=== PATIENT | female | born 1955 | race Two or more races ===

== ENCOUNTER 2021-06-02 12:05 | Outpatient (REF) | payer OTHER, SELFPAY ==
--- NOTE | ~2021-06-02 | MM_ITS ---
EXAMINATION: MM SCREENING DIGITAL BREAST TOMOSYNTHESIS, BILATERAL CLINICAL INFORMATION: Screening. Asymptomatic. The lifetime risk of breast cancer based on the Tyrer-Cuzick Model is 4%. COMPARISON: Mammography: 08/28/2017, 08/25/2014 TECHNIQUE: Digital breast tomosynthesis is performed in both the craniocaudal and mediolateral oblique views along with computer-aided detection (CAD). Synthesized 2D images are generated from the tomosynthesis. FINDINGS: There are scattered areas of fibroglandular density (ACR BI-RADS breast composition Category b). There are no significant masses, abnormal calcifications, or other abnormalities. Parenchymal pattern is similar to prior exams. There is no interval mass or architectural abnormality or developing density. Again, there are multiple grouped round and rim calcifications, most are dermal. There are also some scattered vascular calcifications and dermal lesions overlying the breasts. There are no significant changes. MM/MM tomosynthesis screening BI IMPRESSION: No significant changes from prior studies. ASSESSMENT: BI-RADS 2: Benign RECOMMENDATION: Routine annual mammography screening. This patient's information was entered into a reminder system with a target due date for their next mammogram.
== END 2021-06-02 12:06 | disposition home or self-care (01) ==
LOC: HO.MAMMO 12:05
PROVIDERS: Visit Provider Family Medicine
DX: Z12.13 Encounter for screening for malignant neoplasm of small intestine (principal)
CPT/HCPCS: 77063; 77067

== ENCOUNTER 2022-07-07 14:14 | Outpatient (REF) | payer OTHER, SELFPAY ==
--- NOTE | ~2022-07-07 | MM_ITS ---
EXAMINATION: MM SCREENING DIGITAL BREAST TOMOSYNTHESIS, BILATERAL CLINICAL INFORMATION: Screening. Asymptomatic. The lifetime risk of breast cancer based on the Tyrer-Cuzick Model is 3.5%. COMPARISON: Mammography: 06/02/2021 and studies dating back to 09/19/2008. TECHNIQUE: Digital breast tomosynthesis is performed in both the craniocaudal and mediolateral oblique views along with computer-aided detection (CAD). Synthesized 2D images are generated from the tomosynthesis. FINDINGS: The breasts are heterogeneously dense, which may obscure small masses (ACR BI-RADS breast composition Category c). There is a stable parenchymal pattern of the right breast with no new abnormal dominant mass or suspicious grouping of microcalcifications. About the deep lateral aspect of the left breast on craniocaudal view there is a 4 x 3 mm circumscribed density without fatty cleft and lying approximately 8 cm from the nipple. I do not see a correlate on mediolateral oblique projection. Recommend further evaluation of the left breast density with rolled craniocaudal views and possible ultrasound. MM/MM tomosynthesis screening BI IMPRESSION: Left breast density for further evaluation. ASSESSMENT: BI-RADS 0: Incomplete - Need Additional Imaging Evaluation RECOMMENDATION: 1. Additional views of the left breast. 2. Targeted ultrasound if warranted after review of the additional views. 3. Radiology department staff will contact the patient for additional imaging. This patient's information was entered into a reminder system with a target due date for their next mammogram.
== END 2022-07-07 14:15 | disposition home or self-care (01) ==
LOC: HO.MAMMO 14:14
PROVIDERS: PCP Family Medicine; Visit Provider Family Medicine
DX: Z12.31 Encounter for screening mammogram for malignant neoplasm of breast (principal)
CPT/HCPCS: 77063; 77067

== ENCOUNTER 2022-07-13 14:23 | Outpatient (REF) | payer OTHER, SELFPAY ==
--- NOTE | ~2022-07-13 | MM_ITS ---
EXAMINATION: MM DIAGNOSTIC DIGITAL BREAST TOMOSYNTHESIS, LEFT US DIAGNOSTIC ULTRASOUND BREAST, LEFT CLINICAL INFORMATION: Recall from screening for circumscribed asymmetric nodular density under 5 mm on CC view. COMPARISON: Prior mammography 07/07/2022 and multiple prior exams dating back to 09/19/2008. TECHNIQUE: Digital breast tomosynthesis is performed. 2D images are generated from the tomosynthesis. The following views are obtained: Rolled CC medial x2, rolled CC lateral x2. Ultrasound left breast is targeted to the 2:00 through 5:00 position using grayscale imaging and color Doppler without and with harmonics. FINDINGS: There are scattered areas of fibroglandular density (ACR BI-RADS breast composition Category b). The rolled views demonstrate a smooth circumscribed oval nodule posterior outer breast at level of posterior nipple line 4:00 position and measuring approximately 4 x 3 mm. No visible fatty hilus. No associated calcification. Ultrasound demonstrates no simple cyst, architectural abnormality, or definite intramammary node. A transient 3 mm circumscribed hypoechoic focus was briefly visualized 4:00 and 6 cm from nipple, but unable to be reproducible to confirm a definite ultrasound correlate. Results are discussed with the patient and her daughter at time of visit. Option for short interval follow up discussed. The patient and family prefer tissue sampling which would require stereotactic targeting. The possibility of challenging targeting due to posterior location discussed. Results and recommendation called to spanish medical interpreter (Katie) for Dr. Boyd on 07/13/2022. MM/MM tomosynthesis added views L IMPRESSION: -4 mm smooth oval nodule along posterior nipple line posterior 4:00 position on mammography. -No definite reproducible ultrasound correlate. ASSESSMENT: BI-RADS 4: Suspicious (subcategory 4A: Low suspicion for malignancy) RECOMMENDATION: -Stereotactic sampling if able to be successfully targeted. This patient's information was entered into a reminder system with a target due date for their next mammogram.
== END 2022-07-13 14:24 | disposition home or self-care (01) ==
LOC: HO.MAMMO 14:23
PROVIDERS: PCP Family Medicine; Visit Provider Family Medicine
DX: R92.2 Inconclusive mammogram (principal)
CPT/HCPCS: 76642; 77061; 77065

== ENCOUNTER 2022-07-15 09:14 | Outpatient (REF) | payer OTHER, SELFPAY ==
--- NOTE | ~2022-07-15 | MM_ITS ---
EXAMINATION: STEREOTACTIC TOMOSYNTHESIS-GUIDED VACUUM-ASSISTED BREAST BIOPSY, LEFT SPECIMEN RADIOGRAPH, LEFT POST PROCEDURE DIGITAL MAMMOGRAM, LEFT CLINICAL INFORMATION: Left breast density deep 4:00 position. COMPARISON: July 13, 2022 and studies dating back to August 28, 2017. TECHNIQUE/PROCEDURE: Informed consent was obtained from the patient after discussion of the benefits, risks, and alternatives to biopsy today. Patient appeared to understand. Gave opportunity for questions. Patient signed consent form. BIOPSY TABLE: [employer] Affirm Prone Biopsy System. LESION: Circumscribed density. LOCAL ANESTHESIA: 10 mL 1% lidocaine; 20 mL 1% lidocaine with epinephrine. DERMATOTOMY: Single skin tiara dermatotomy performed. NEEDLE: [employer] Eviva 9-gauge vacuum assisted core biopsy device. APPROACH: medial lateral. TARGETING: Digital breast tomosynthesis used for targeting. CORES: 13. CLIP: [employer] SecurMark Cylinder-shaped marker. SPECIMEN RADIOGRAPH: Specimen radiograph is taken in separate room using digital mammography. No definite lesion is appreciated amongst tissue. POST PROCEDURE UNILATERAL DIGITAL MAMMOGRAM: The post biopsy mammogram is performed in separate room using separate digital mammography equipment from the biopsy procedure. 2 views are obtained. The breasts are heterogeneously dense, which may obscure small masses (breast composition category: c). The clip marker is in position. No gross hematoma. The patient tolerated the procedure well. No immediate complications. Home instructions reviewed with the patient. Final pathology results are pending. MM/MM stereotactic biopsy LT IMPRESSION: 1. Digital tomosynthesis-guided core biopsy left breast with clip placement. 2. Specimen radiograph taken and post procedure mammogram. There is satisfactory positioning of the biopsy clip. 3. Final pathology results pending. An addendum report will be issued.
[2022-07-15] MEDS: Lidocaine HCl 1 % 20 ML VIAL 9 ML SUBCUT (12:55)
[2022-07-15] MEDS: Sodium Bicarbonate 8.4% 50 MEQ/50 ML VIAL SUBCUT (12:56)
[2022-07-15] MEDS: Lidocaine HCl 1% PF/Epi 1:200,000 30 ML VIAL 20 ML SUBCUT (12:58)
== END 2022-07-15 09:15 | disposition home or self-care (01) ==
LOC: HO.MAMMO 09:14
PROVIDERS: PCP Family Medicine; Visit Provider Surgery
DX: R92.8 Other abnormal and inconclusive findings on diagnostic imaging of breast (principal)
CPT/HCPCS: 19081; 88305; A4648

== ENCOUNTER 2023-06-26 11:48 | Outpatient (REF) | payer OTHER, SELFPAY ==
--- NOTE | ~2023-06-26 | XR_ITS ---
EXAMINATION: XR FOOT, RIGHT CLINICAL INFORMATION: Right heel pain COMPARISON: None available. TECHNIQUE: AP, lateral, and oblique views of the right foot. FINDINGS: There is a prominent posterior calcaneal spur. Small plantar calcaneal spur. Bones joints and soft tissues otherwise unremarkable. XR/XR foot RT min 3V IMPRESSION: 1. Prominent posterior calcaneal spur. 2. Small plantar calcaneal spur.
== END 2023-06-26 11:49 | disposition home or self-care (01) ==
LOC: HO.HHCX 11:48
PROVIDERS: Visit Provider Family Medicine
DX: M79.671 Pain in right foot (principal)
CPT/HCPCS: 73630

== ENCOUNTER 2023-10-11 08:52 | Outpatient (AMB) | payer MEDICARE, SELFPAY ==
--- NOTE | 2023-10-11 09:44 | MHC.OFFVIS ---
Intake Vital Signs 10/11/23 09:46 Height 5 ft 3 in Weight 206 lb BMI 36.5 BP 180/100 H Intake Visit Reasons: New patient /Colpo consult Land Mobile Radio Technician Required: No Information Interpreted: non-clinical & clinical Brand Protection Manager: Brand Protection Manager Present (Vanna) Allergies morphine [MORPHINE] Allergy (Intermediate, Verified 10/11/23 09:48) ITCHING Is last menstrual period known: No Post menopausal: No HPI HPI Comments History of Present Illness Details Presenting referred for abnormal Pap smear done in 08/29 showing LGSIL HPV negative; in 2017 Pap was ascus/HPV negative [facility] Medical History Restless legs syndrome High cholesterol Depression with anxiety Hypothyroid HTN (hypertension), benign Surgical History Hx of tubal ligation Family History Father Diabetes Anemia, goat's milk Social History Alcohol intake: never Patient Tobacco Use Status: Never used Tobacco Female Reproductive History Menstrual Age of Menarche: 11 control method: permanent sterilization Total pregnancies: 5 Full term: 5 Number of Living Children: 4 Date of last pap smear: 08/26/22 (ASCUS) History of abnormal pap smear: Yes Review of Systems Const All systems reviewed & are unremarkable except as noted in HPI and below Reports as per HPI and Reports no additional complaints GI Reports no additional complaints Reports no additional complaints Physical Exam Vital Signs: Last Vital Signs BP 180/100 H 10/11/23 09:46 BMI result Body Mass Index 36.5 Assessment & Plan Assessment & Plan (1) LGSIL on Pap smear of cervix: Code(s): R87.612 - Low grade squamous intraepithelial lesion on cytologic smear of cervix (LGSIL) Plan: Discussed with the patient the result of her abnormal pap, its significance, risk of progression, persistence, and regression. the false positive/negative rate of a Pap smear as a screening test in detecting cervical cancer and the indication for a diagnostic test -colposcopy, biopsy, endocervical curettage. The patient verbalized understanding and agreed with the plan, all questions answered. Since the blood pressure is elevated in the patient did not occur antihypertensive today, instructions given the patient to reschedule colposcopy within a week. Coding Level of Care Code New Pt Level 3 (82819) Diagnoses LGSIL on Pap smear of cervix R87.612
[2023-10-11 09:46] VITALS: BP 180/100; BMI 36.5
== END 2023-10-11 10:12 | disposition left against medical advice (07) ==
LOC: HO.HWS 08:52
PROVIDERS: PCP Family Medicine; Visit Provider Obstetrics & Gynecology
DX: R87.612 Low grade squamous intraepithelial lesion on cytologic smear of cervix (LGSIL) (principal)
CPT/HCPCS: 99203

== ENCOUNTER → 2023-10-11 08:52 | Outpatient (BNVA) | payer MEDICARE, SELFPAY | PROVIDERS: PCP Family Medicine; Visit Provider Obstetrics & Gynecology | DX: R87.612 Low grade squamous intraepithelial lesion on cytologic smear of cervix (LGSIL) (principal) | CPT/HCPCS: 99202 ==

== ENCOUNTER 2023-10-18 09:25 | Outpatient (AMB) | payer MEDICARE, SELFPAY ==
--- NOTE | 2023-10-18 09:30 | MHC.OFFVIS ---
Intake Vital Signs 10/18/23 09:39 Height 5 ft 3 in Weight 205 lb 0.478 oz BMI 36.3 BP 140/80 H Intake Visit Reasons: Colposcopy Director Perioperative Required: Yes Director Perioperative Language: Hydrographical Technical Officer Name: Vanna HAWKINS Information Interpreted: non-clinical & clinical Program Management Professional: Program Management Professional Present (Vanna HAWKINS) Accompanied by: Self / Same As Patient Allergies morphine [MORPHINE] Allergy (Intermediate, Verified 10/18/23 09:40) ITCHING Post menopausal: Yes HPI HPI Comments History of Present Illness Details Presenting for colposcopy for LGSIL on Pap smear [facility] Medical History Restless legs syndrome High cholesterol Depression with anxiety Hypothyroid HTN (hypertension), benign Surgical History Hx of tubal ligation Family History Father Diabetes Anemia, goat's milk Social History Alcohol intake: never Patient Tobacco Use Status: Never used Tobacco Female Reproductive History Menstrual Age of Menarche: 11 Physical Exam Vital Signs: Last Vital Signs BP 140/80 H 10/18/23 09:39 BMI result Body Mass Index 36.3 Office Procedures Colposcopy Before the procedure was started discussed with the patient the procedure, alternatives & all the risks associated with the procedure (bleeding, infection, injury to vagina, bladder, vessels, possible need for transfusion with all its risks) then patient signed the consent Pap smear = LSIL Speculum inserted, acetic acid used Colposcopy done Transformation zone seen, acetowhite lesions identified at 6+9+11+12+1 o?clock, cervical biopsies taken from 6+9+11+12+ o?clock, ECC done afterwards. Vaginoscopy of the upper vagina showed no evidence of any aceto-white lesions Monsel solution used for hemostasis. The patient tolerated well . At the end the patient was instructed to call if temp>100.4, abdominal pain, n/v, bleeding; The patient was given the following instructions: nothing per vagina, no intercourse or bath tub use. All questions answered the patient verbalized understanding. Instructed the patient to make an appointment in 2 weeks for follow-up This note was generated with a voice recognition program. Some errors may have been overlooked during the review of this note. Sometimes these errors may affect the content or meaning of a given sentence. [id number] of cervix including upper vagina with biopsy and ECC Procedure code (CPT) selection complete Assessment & Plan Assessment & Plan (1) LGSIL on Pap smear of cervix: Code(s): R87.612 - Low grade squamous intraepithelial lesion on cytologic smear of cervix (LGSIL) Plan: Colposcopy done, see procedure note Orders: Orders AMB Colposcopy Today R87.612 - Low grade squamous intraepithelial lesion on cytologic smear of cervix (LGSIL) Coding Level of Care Code Procedure Only Diagnoses LGSIL on Pap smear of cervix R87.612 CPT Codes Colposcopy - CPT: 34111-Cdhnuhsvj of cervix including upper vagina with biopsy and ECC ([id number])
[2023-10-18 09:39] VITALS: BP 140/80; BMI 36.3
== END 2023-10-18 09:57 | disposition home or self-care (01) ==
LOC: HO.HWS 09:26
PROVIDERS: PCP Family Medicine; Visit Provider Obstetrics & Gynecology
DX: R87.612 Low grade squamous intraepithelial lesion on cytologic smear of cervix (LGSIL) (principal)
CPT/HCPCS: 57454

== ENCOUNTER 2023-10-18 09:25 | Outpatient (REF) | payer MEDICARE, SELFPAY | END 2023-10-18 09:26 | disposition home or self-care (01) | LOC: HO.LNP 09:25 | PROVIDERS: PCP Family Medicine; Visit Provider Obstetrics & Gynecology | DX: R87.612 Low grade squamous intraepithelial lesion on cytologic smear of cervix (LGSIL) (principal) | CPT/HCPCS: 57454; 88305 ==

== ENCOUNTER 2023-11-04 08:53 | Outpatient (REF) | payer MEDICARE, SELFPAY ==
--- NOTE | ~2023-11-04 | MM_ITS ---
EXAMINATION: MM SCREENING DIGITAL BREAST TOMOSYNTHESIS, BILATERAL CLINICAL INFORMATION: Screening. Asymptomatic. COMPARISON: Mammography: This study is compared with prior exams dating back to 2018. TECHNIQUE: Digital breast tomosynthesis is performed in both the craniocaudal and mediolateral oblique views along with computer-aided detection (CAD). Synthesized 2D images are generated from the tomosynthesis. FINDINGS: There are scattered areas of fibroglandular density (ACR BI-RADS breast composition Category b). There are no significant masses, abnormal calcifications, or other abnormalities. There is a biopsy tissue marker in the left breast. This indicates a site of prior benign percutaneous biopsy. Bilateral, benign calcifications are present in each breast. MM/MM tomosynthesis screening BI IMPRESSION: No mammographic evidence of malignancy. ASSESSMENT: BI-RADS BI-RADS 2 - Benign Findings RECOMMENDATION: Routine annual mammography screening. 1 year F/U This examination should not preclude the clinical evaluation of a suspicious palpable abnormality. This patient's information was entered into a reminder system with a target due date for their next mammogram.
== END 2023-11-04 08:54 | disposition home or self-care (01) ==
LOC: HO.MAMMO 08:53
PROVIDERS: PCP Family Medicine; Visit Provider Family Medicine
DX: Z12.31 Encounter for screening mammogram for malignant neoplasm of breast (principal)
CPT/HCPCS: 77063; 77067

== ENCOUNTER → 2023-11-04 09:15 | Outpatient (BNV) | payer MEDICARE, SELFPAY | PROVIDERS: PCP Family Medicine; Visit Provider Radiology Diagnostic Radiology | DX: Z12.31 Encounter for screening mammogram for malignant neoplasm of breast (principal) | CPT/HCPCS: 77063; 77067 ==

== ENCOUNTER 2024-02-16 12:13 | Outpatient (REF) | payer MEDICARE, SELFPAY ==
--- NOTE | ~2024-02-16 | XR_ITS ---
EXAMINATION: XR HIP, RIGHT CLINICAL INFORMATION: Pain for approximately 2 weeks. COMPARISON: None available. TECHNIQUE: Two views of the right hip. FINDINGS: No acute fracture or subluxation. Mild degenerative osteoarthritis. No significant soft tissue abnormality. XR/XR hip RT min 2V IMPRESSION: No acute fracture or malalignment. Mild degenerative osteoarthritis. If the patient has persistent pain or a diminished ability to bear weight on short-term follow-up, consider obtaining an MRI of the pelvis without contrast to exclude a radiographically occult fracture.
== END 2024-02-16 12:14 | disposition home or self-care (01) ==
LOC: HO.HHCX 12:13
PROVIDERS: Visit Provider Student in an Organized Health Care Education/Training Program
DX: M25.551 Pain in right hip (principal)
CPT/HCPCS: 73502

== ENCOUNTER 2024-02-21 09:31 | Outpatient (REF) | payer MEDICARE, SELFPAY ==
[2024-02-21 11:23] LABS: Hematocrit 45.7 % (37.0-47.0); Hemoglobin 14.5 g/dl (12.0-16.0); Mean Corpuscular HGB Conc 31.7 g/dl (31.0-35.0); Mean Corpuscular Hemoglobin 28.8 pg (27.0-33.0); Mean Corpuscular Volume 90.7 fL (80.0-98.0); Mean Platelet Volume 10.4 fL (9.4-12.3); Platelet Count 184 X10*3/uL (160-400); Red Blood Count 5.04 X10*6/uL (4.20-5.50); Red Cell Distribution Width 14.3 % (11.0-16.0); White Blood Count 4.4 X10*3/uL (4.8-10.8)
[2024-02-21 12:09] LABS: Alanine Aminotransferase 22 U/L (0-31); Albumin Level 4.3 g/dL (3.5-5.0); Alkaline Phosphatase 57 U/L (39-117); Anion Gap 13 (12-20); Aspartate Amino Transferase 22 U/L (5-31); Bilirubin Total 0.7 mg/dL (0.0-1.0); Blood Urea Nitrogen 20 mg/dL (9-16); Calcium 9.4 mg/dL (8.4-10.2); Carbon Dioxide 26 mmol/L (22-29); Chloride 105 mmol/L (96-108); Estimated Glomerular Filt Rate > 60; Glucose Random 81 mg/dL (60-115); Potassium 4.1 mmol/L (3.3-5.1); Sodium 140 mmol/L (135-145); Total Protein 7.4 g/dL (6.5-8.0)
[2024-02-21 12:12] LABS: Free T4 (Free Thyroxine) 0.98 ng/dL (0.71-1.85); Thyroid Stimulating Hormone 3.37 uIU/mL (0.32-4.0)
[2024-02-21 12:34] LABS: Estimated Average Glucose 100 mg/dL; Hemoglobin A1c % 5.1 % (<6.0)
[2024-02-23 13:28] LABS: HCV Log PCR <1.18 NOT DETECTED Log IU/mL (NOT DETECTED); HepC Viral Load <15 NOT DETECTED IU/mL (NOT DETECTED)
== END 2024-02-21 09:32 | disposition home or self-care (01) ==
LOC: HO.HHCL 09:31
PROVIDERS: Visit Provider Student in an Organized Health Care Education/Training Program
DX: R53.83 Other fatigue (principal); Z13.1 Encounter for screening for diabetes mellitus
CPT/HCPCS: 36415; 80053; 83036; 84439; 84443; 85027; 87522

== ENCOUNTER 2024-02-22 09:26 | Outpatient (AMB) | payer MEDICARE, SELFPAY ==
--- NOTE | 2024-02-22 12:54 | MHC.OFFVIS ---
Intake Visit Reasons: colpo results Allergies morphine [MORPHINE] Allergy (Intermediate, Verified 10/18/23 09:40) ITCHING HPI Comments Details: Presenting post colpo for follow-up. The patient is doing well with no complaints. The pathology showed the following: A. Endocervix, curettage: - Low grade squamous intraepithelial lesion (ADELINA 1). - Inflamed endocervical mucosa with reactive changes. B. Cervix, 1 o'clock, biopsy: Inflamed squamous epithelium with reactive changes; no endocervical epithelium present. C. Cervix, 6 o'clock, biopsy: Squamous mucosa within normal limits; no endocervical epithelium present. D. Cervix, 9 o'clock, biopsy: Squamous mucosa within normal limits; no endocervical epithelium present. E. Cervix, 11 o'clock, biopsy: Squamous mucosa within normal limits; no endocervical epithelium present. F. Cervix, 12 o'clock, biopsy: Mildly inflamed squamous mucosa and focal endocervical epithelium with reactive changes PFSH Medical History Restless legs syndrome High cholesterol Depression with anxiety Hypothyroid HTN (hypertension), benign Surgical History Hx of tubal ligation Family History Father Diabetes Anemia, goat's milk Social History Alcohol intake: never Patient Tobacco Use Status: Never used Tobacco Female Reproductive History Menstrual Age of Menarche: 11 Review of Systems Const All systems reviewed & are unremarkable except as noted in HPI and below Reports as per HPI and Reports no additional complaints GI Reports no additional complaints Reports no additional complaints Telehealth Telehealth Telehealth Platform: Telephone Location of provider rendering services: practice address Location of patient: address on file Patient Identification confirmed using: Name, : Yes Telehealth method: voice only Patient verbally consented to treatment: Yes Patient verbally consented to billing insurance company: Yes Patient informed of any privacy concerns related to visit: Yes Assessment & Plan Assessment & Plan (1) Dysplasia of cervix, low grade (ADELINA 1): Code(s): N87.0 - Mild cervical dysplasia Category: Medical Plan: Discussed with the patient the pathology results of the colposcopy biopsies & endocervical curettage ( mild dysplasia-ADELINA 1). Discussed with the patient the sensitivity specificity, positive and negative predictive value in detecting cervical cancer in addition discussed the regression, persistence and progression rates. Recommended co-testing in 12 months, if cytology and or HPV are abnormal will proceed was colposcopy biopsy and endocervical curettage, if lesions gets worse or stays persistent for 2 years will proceed with loop electric excision procedure. Instructions given to the patient to schedule a co test appointment in 1 year. All questions answered the patient verbalized understanding. I spent a total of 20 minutes reviewing the chart, talking to the patient via phone and documenting in the medical record. Coding Level of Care Code Tele Est Pt Level 1 (83650) Diagnoses Dysplasia of cervix, low grade (ADELINA 1) N87.0
== END 2024-02-22 14:57 | disposition home or self-care (01) ==
PROVIDERS: PCP Family Medicine; Visit Provider Obstetrics & Gynecology
DX: N87.0 Mild cervical dysplasia (principal)
CPT/HCPCS: 99211; 99442

== ENCOUNTER → 2024-02-22 09:26 | Outpatient (BNVA) | payer MEDICARE, SELFPAY | PROVIDERS: PCP Family Medicine; Visit Provider Obstetrics & Gynecology ==

== ENCOUNTER 2024-06-05 08:54 | Outpatient (REF) | payer MEDICARE, SELFPAY ==
[2024-06-05 11:44] LABS: Hemoglobin 14.5 g/dl (12.0-16.0); Mean Corpuscular HGB Conc 31.5 g/dl (31.0-35.0); Mean Corpuscular Hemoglobin 28.2 pg (27.0-33.0); Mean Corpuscular Volume 89.5 fL (80.0-98.0); Mean Platelet Volume 10.7 fL (9.4-12.3); Platelet Count 195 X10*3/uL (160-400); Red Blood Count 5.14 X10*6/uL (4.20-5.50); Red Cell Distribution Width 14.3 % (11.0-16.0); White Blood Count 5.8 X10*3/uL (4.8-10.8)
[2024-06-05 12:06] LABS: Creatinine Urine 124.61 mg/dL; Microalbum/Creatinine Ratio Ur 8.8 ug/mg cr (<30)
[2024-06-05 12:22] LABS: Estimated Average Glucose 105 mg/dL; Hemoglobin A1C 132.8683 umol/L; Hemoglobin A1c % 5.3 % (<6.0); Total Hemoglobin (HGBA1C) 3850.2775 umol/L
[2024-06-05 12:24] LABS: Alanine Aminotransferase 22 U/L (0-31); Albumin Level 4.1 g/dL (3.5-5.0); Alkaline Phosphatase 56 U/L (39-117); Anion Gap 10 (12-20); Aspartate Amino Transferase 22 U/L (5-31); Bilirubin Direct 0.1 mg/dL (0.0-0.5); Bilirubin Total 0.5 mg/dL (0.0-1.0); Blood Urea Nitrogen 21 mg/dL (9-16); Carbon Dioxide 26 mmol/L (22-29); Chloride 110 mmol/L (96-108); Cholesterol 215 mg/dL (<200); Estimated Glomerular Filt Rate > 60; Glucose Random 91 mg/dL (60-115); HDL Cholesterol 52 mg/dL (>40); LDL Cholesterol Calculated 138 mg/dL (<100); Potassium 4.2 mmol/L (3.3-5.1); Sodium 142 mmol/L (135-145); Total Protein 7.2 g/dL (6.5-8.0); Triglycerides 126 mg/dL (<150)
[2024-06-05 12:26] LABS: Free T4 (Free Thyroxine) 1.07 ng/dL (0.71-1.85); Thyroid Stimulating Hormone 4.66 uIU/mL (0.32-4.0); Vitamin D 25-OH Total 42.3 ng/mL (>30)
[2024-06-05 14:32] LABS: CT PCR NOT DETECTED (Not Detect.); NG PCR NOT DETECTED (Not Detect.)
[2024-06-06 08:37] LABS: HBS Num1 32.85 mIU/mL (0-7.99); HBc Num1 0.16 S/CO (0.00-0.79); HBsAGNum1 0.33 S/CO (0.00-0.99); HIV AB/AG Nonreactive (Nonreactive); HIV Num 1 0.04 S/CO (0.00-0.99); Hepatitis A Antibody IgG REACTIVE (Nonreactive); Hepatitis B Core Antibody Nonreactive (Nonreactive); Hepatitis B Surface Antigen Negative (Negative); ~HepC Num1 0.83 S/CO (0.00-0.79); ~Hepatitis B Surface Antibody REACTIVE (Nonreactive)
[2024-06-06 09:17] LABS: ~HepC Num2 0.82; ~HepC Num3 0.85; ~Hepatitis C Antibody GRAYZONE (Nonreactive)
[2024-06-07 07:44] LABS: RPR Rapid Plasma Reagin NON-REACTIVE (NON-REACTIVE)
[2024-06-07 14:43] LABS: HCV Log PCR <1.18 NOT DETECTED Log IU/mL (NOT DETECTED); HepC Viral Load <15 NOT DETECTED IU/mL (NOT DETECTED)
== END 2024-06-05 08:55 | disposition home or self-care (01) ==
LOC: HO.HHCL 08:54
PROVIDERS: Visit Provider Family Medicine
DX: I10 Essential (primary) hypertension (principal); Z13.1 Encounter for screening for diabetes mellitus
CPT/HCPCS: 36415; 80048; 80061; 80076; 82043; 82306; 82570; 83036; 84439; 84443; 85027; 86592; 86704; 86706; 86708; 86803; 87340; 87389; 87491; 87522; 87591

== ENCOUNTER 2024-10-23 08:50 | Outpatient (REF) | payer MEDICARE, SELFPAY ==
--- NOTE | ~2024-10-23 | MM_ITS ---
EXAMINATION: DXA BONE DENSITY AXIAL HISTORY: Estrogen deficiency TECHNIQUE: [employer] Dual energy absorptiometry (DEXA) of the lumbar spine, total left hip, and femoral neck was performed. COMPARISON: Comparison is made with the prior examination dated 11/15/2011. FINDINGS: The bone mineral density of the lumbar spine is 1.391 with a T-score of 1.8, and a Z-score of 2.7. This is indicative of normal bone mineral density. This represents a BMD change of 6.3% compared to the prior exam. This is statistically significant. The bone mineral density of the left total hip is 0.902 with a T-score of -0.8, and a Z-score of 0.0. This is indicative of normal bone mineral density. This represents a BMD change of -0.9% compared to the prior exam. This is not statistically significant. The bone mineral density of the left femoral neck is 0.838 with a T-score of -1.4, and a Z-score of -0.3. This is indicative of osteopenia. This represents a BMD change of -11.3% compared to the prior exam. FRACTURE RISK: The FRAX index suggests a ten year probability of major osteoporotic fracture of 5.1%, and of hip fracture 0.7%. MM/XR DEXA axial skeleton IMPRESSION: Based on bone mineral density, and according to World Health Organization (WHO) criteria, the diagnosis is consistent with osteopenia. All bone density values are in grams per centimeter squared (g/cm2). Statistically, 68% of repeat scans fall within 1 SD (+/- 0.010 g/cm2 for AP spine L1-L4) and 1 SD (+/- 0.012 g/cm2 for femur total) FRAX is a trademark of the [employer]'s [employer] Met[employer], a World Health Organization (WHO) Collaborating Center. Electronically signed by: Darren Hong MD 10/23/2024 10:01 AM EDT
--- OUTSIDE RECORDS SUMMARY | 2024-10-23 09:43 | XMS_ITS | Encounter Summary ---
Author Organization [employer] Address [address] [facility] [address] [place] [address] Care Team Providers Care Organic Preparation Technician Name Role Phone Rosa Elliott DO Primary Care Provider + [phone] Reason for Visit * Reason Comments Med Refill Encounter Details Date Type Department Care Team ([facility] st Contact Info) Description 06/03/2023 Refill [facility] [address] [place], [place] [id number] Rosa Elliott DO [address] [place] [address] Secondary hypertension Social History Tobacco Use Types Packs/Day Years Used Date Smoking Tobacco: Never Passive Smoke Exposure: Never Smokeless Tobacco: Never Alcohol Use Standard Drinks/Week Comments Never 0 (1 standard drink = 0.6 oz pur e alcohol) Depression Answer Date Recorded Patient Health Questionnaire-9 Score 5 01/18/2023 Housing Stability Answer Date Recorded What is your housing situation today? I have carina bahena 06/03/[address] you li ve. Do you have problems with any of the following? None of the above 06/03/2023 Food Insecurity Answer Date Recorded Within the past 12 months, y ou worried that your food would run out before you got money to buy more: Never True 06/03/2023 Within the past 12 months,th e food you bought just didn't last and you didn't have enough money to get more: Never True Transportation Answer Date Recorded In the past 12 months, has l ack of transportation kept you from medical appts, meetings, work or from getting things needed for daily living? No 06/03/2023 Utilities Answer Date Recorded In the past 12 months, has t he electric, gas, oil or water company threatened to shut off services in your home? No 06/03/2023 Depression Answer Date Recorded Patient Health Questionnaire-2 Score 0 01/18/2023 Comments Unknown Sex and Gender Information Value Date Recorded Sex Assigned at Female 06/06/2022 10:21 AM EDT Legal Sex Female 10:21 AM EDT Gender Identity Female 06/06/2022 10:21 AM EDT Sexual Orientation Straight 06/06/2022 10 :21 AM EDT documented as of this encounter Plan of Treatment Not on file documented as of this encounter Visit Diagnoses Diagnosis Secondary hypertension Other secondary hypertension, unspecified documented in this encounter Additional Health Concerns Assessment Noted Time PHQ-9 Depression Total Score: 5 01/19/20 23 10:30 AM EDT documented as of this encounter Care Teams Organic Preparation Technician Relationship Specialty Start Date End Date Rosa Elliott DO [address] [place] [address] PCP - General Family Medicine 02/21/14 documented as of this encounter
--- OUTSIDE RECORDS SUMMARY | 2024-10-23 09:43 | XMS_ITS | Encounter Summary ---
Author Organization [employer] [facility] Address [address] [place] [address] [address] [place] [address] Care Team Providers Care Freight Broker Agent Name Role Phone Rosa Elliott DO Primary Care Provider Encounter Details Date Type Department Care Team (Late st Contact Info) Description 07/26/2022 Abstract [facility] [address] [place] [address] Rosa Elliott DO [address] [place] [address] Social History Tobacco Use Types Packs/Day Years Used Date Smoking Tobacco: Never Assessed Comments Unknown Sex and Gender Information Value Date Recorded Sex Assigned at Female 06/06/2022 10:21 AM EDT Legal Sex Female 10:21 AM EDT Gender Identity Female 06/06/2022 10:21 AM EDT Sexual Orientation Straight 06/06/2022 10 :21 AM EDT documented as of this encounter Plan of Treatment Not on file documented as of this encounter Visit Diagnoses Not on filedocumented in this encounter Care Teams Freight Broker Agent Relationship Specialty Start Date End Date Rosa Elliott DO [address] [place], [place] [phone] PCP - General Family Medicine 02/21/14 documented as of this encounter
--- OUTSIDE RECORDS SUMMARY | 2024-10-23 09:43 | XMS_ITS | Encounter Summary ---
Author Organization [employer] [facility] Address [address] [place] [address] [address] [place] [address] Care Team Providers Care Airplane Mechanic Name Role Phone Rosa Elliott DO Primary Care Provider + [phone] Encounter Details Date Type Department Care Team (Late st Contact Info) Description 07/26/2022 Abstract [facility] [address] [place] [address] Provider, Jonathan, Social History Tobacco Use Types Packs/Day Years Used Date Smoking Tobacco: Never Assessed Comments Unknown Sex and Gender Information Value Date Recorded Sex Assigned at Female 06/06/2022 10:21 AM EDT Legal Sex Female 10:21 AM EDT Gender Identity Female 06/06/2022 10:21 AM EDT Sexual Orientation Straight 06/06/2022 10 :21 AM EDT documented as of this encounter Plan of Treatment Pending Results Name Type Priority Associated Diagnoses Date /Time External Breast Biopsy Imaging Routine 9:08 AM EST documented as of this encounter Procedures Procedure Name Priority Date/Time Associated Diagnosis Comments EXTERNAL BREAST BIOPSY Routine 07/15/2022 9:09 AM EST documented in this encounter Results * External Breast Biopsy (07/15/2022 9:09 AM EST) Anatomical Region Laterality Modality Breast N/A Mammography Narrative 07/15/2022 9:09 AM EST Stereotactic biopsy of left breast with benign results us Historical Provider MD MANZANARES BI PROCEDURES Final R esult documented in this encounter Visit Diagnoses Not on filedocumented in this encounter Care Teams Airplane Mechanic Relationship Specialty Start Date End Date Rosa Elliott DO [address] [place] [address] PCP - General Family Medicine 02/21/14 documented as of this encounter
--- OUTSIDE RECORDS SUMMARY | 2024-10-23 09:44 | XMS_ITS | Encounter Summary ---
Author Organization [employer] Address [address] [facility] [place] [address] Care Team Providers Care Marine Tower Operator Name Role Phone Rosa Elliott DO Primary Care Provider [phone] Reason for Visit * Reason Onset Date Comments Reschedule 06/27/2024 Encounter Details Date Type Department Care Team ([facility] st Contact Info) Description 06/27/2024 Telephone [facility] [address] [place], [place] [phone] Rosa Elliott DO [address] [place], [place] [phone] Reschedule Social History Tobacco Use Types Packs/Day Years Used Date Smoking Tobacco: Never Passive Smoke Exposure: Never Smokeless Tobacco: Never Alcohol Use Standard Drinks/Week Comments Never 0 (1 standard drink = 0.6 oz pur e alcohol) Depression Answer Date Recorded Patient Health Questionnaire-9 Score 3 02/21/2024 Patient Health Questionnaire-9 Score 3 02/21/2024 Last PHQ-9: Questionnaire Data Not on file 0 02/21/2024 Housing Stability Answer Date Recorded What is your housing situation today? I have carina bahena 05/30/[address] you li ve. Do you have problems with any of the following? None of the above 05/30/2024 Food Insecurity Answer Date Recorded Within the past 12 months, y ou worried that your food would run out before you got money to buy more: Never True 05/30/2024 Within the past 12 months,th e food you bought just didn't last and you didn't have enough money to get more: Never True Transportation Answer Date Recorded In the past 12 months, has l ack of transportation kept you from medical appts, meetings, work or from getting things needed for daily living? No 05/30/2024 Utilities Answer Date Recorded In the past 12 months, has t he electric, gas, oil or water company threatened to shut off services in your home? No 05/30/2024 Depression Answer Date Recorded Patient Health Questionnaire-2 Score 3 02/21/2024 Internet Access Answer Date Recorded Internet Access Q1 Yes 05/30/2024 Internet Access Q2 Not on file 05/30/2024 Comments Unknown Sex and Gender Information Value Date Recorded Sex Assigned at Female 06/06/2022 10:21 AM EDT Legal Sex Female 10:21 AM EDT Gender Identity Female 06/06/2022 10:21 AM EDT Sexual Orientation Straight 06/06/2022 10 :21 AM EDT documented as of this encounter Miscellaneous Notes * Telephone Encounter - Shimon Carlson - 06/27/2024 10:02 AM EST Tc from pt requesting to r/s appt for 06/28. Contact pt to r/s at [phone] documented in this encounter Plan of Treatment Not on file documented as of this encounter Visit Diagnoses Not on filedocumented in this encounter Additional Health Concerns Assessment Noted Time PHQ-9 Depression Total Score: 3 02/21/20 24 10:33 AM EDT documented as of this encounter Care Teams Marine Tower Operator Relationship Specialty Start Date End Date Rosa Elliott DO [address] [place] [id number] PCP - General Family Medicine 02/21/14 documented as of this encounter
--- OUTSIDE RECORDS SUMMARY | 2024-10-23 09:44 | XMS_ITS | Clinical Summary ---
Author Organization [facility] Address [id number] [place] [id number] Care Team Providers Care Lead Programmer Name Role Phone Aisha Anne MD Primary Care Provider [phone] Family History Medical History Relation Name Comments No Known Problems Aunt No Known Problems Brother No Known Problems Father No Known Problems Maternal Grandfather No Known Problems Maternal Grandmother No Known Problems Mother No Known Problems Other No Known Problems Paternal Grandfather No Known Problems Paternal Grandmother No Known Problems Sister No Known Problems Uncle Blindness Neg Hx Cataracts Neg Hx Glaucoma Neg Hx Macular degeneration Neg Hx Strabismus Neg Hx Relation Name Status Comments Aunt Brother Father Maternal Grandfather Maternal Grandmother Mother Other Paternal Grandfather Paternal Grandmother Sister Uncle Social History Tobacco Use Types Packs/Day Years Used Date Smoking Tobacco: Never Smokeless Tobacco: Never Comments Unknown Sex and Gender Information Value Date Recorded Sex Assigned at Not on file Legal Sex Female 4:32 PM EST Gender Identity Not on file Sexual Orientation Not on file Obstetrics History Plan of Treatment Health Maintenance Due Date Last Done Comments Breast Cancer Screening 1955 DTaP,Tdap,and Td Vaccines (1 - Tdap) 1974 Pneumococcal Vaccine: 50+ Ye ars (1 of 1 - PCV) 2005 Zoster Vaccines (1 of 2) 2005 COVID-19 Vaccine (2023-2 5 season) 2024 Influenza Vaccine (#1) 2024 RSV Immunization Patients 60 + Years Old (1 - 1-dose 75+ series) 2030 HIB Vaccines Aged Out No longer eligi ble based on patient's age to complete this topic HPV Vaccines Aged Out No longer eligi ble based on patient's age to complete this topic Hepatitis A Vaccines Aged Out No long er eligible based on patient's age to complete this topic Hepatitis B Vaccines Aged Out No long er eligible based on patient's age to complete this topic IPV Vaccines Aged Out No longer eligi ble based on patient's age to complete this topic MMR Vaccines Aged Out No longer eligi ble based on patient's age to complete this topic Meningococcal ACWY Vaccine Aged Out N o longer eligible based on patient's age to complete this topic Meningococcal B Vacine Aged Out No lo nger eligible based on patient's age to complete this topic RSV Immunization Patients Un joy 20 months Aged Out No longer eligible b ased on patient's age to complete this topic Varicella Vaccines Aged Out No longer eligible based on patient's age to complete this topic Care Teams Lead Programmer Relationship Specialty Start Date End Date Aisha Anne MD PCP - General Internal Medicine 11/04/20
--- OUTSIDE RECORDS SUMMARY | 2024-10-23 09:44 | XMS_ITS | Encounter Summary ---
Author Organization [facility] [facility] Address [address] [facility] [address] [place] [address] Care Team Providers Care Import Export Agent Name Role Phone Rosa Elliott DO Primary Care Provider [phone] Reason for Visit * Reason Comments Med Refill Encounter Details Date Type Department Care Team ([facility] st Contact Info) Description 03/17/2023 Refill [facility] [address] [place], [place] [phone] Rosa Elliott DO [address] [place] [address] Other insomnia Social History Tobacco Use Types Packs/Day Years Used Date Smoking Tobacco: Never Passive Smoke Exposure: Never Smokeless Tobacco: Never Alcohol Use Standard Drinks/Week Comments Never 0 (1 standard drink = 0.6 oz pur e alcohol) Depression Answer Date Recorded Patient Health Questionnaire-9 Score 5 01/18/2023 Depression Answer Date Recorded Patient Health Questionnaire-2 [...] as of this encounter Visit Diagnoses Diagnosis Other insomnia documented in this encounter Additional Health Concerns Assessment Noted Time PHQ-9 Depression Total Score: 5 01/19/20 23 10:30 AM EDT documented as of this encounter Care Teams Import Export Agent Relationship Specialty Start Date End Date Rosa Elliott DO [address] [place] [address] PCP - General Family Medicine 02/21/14 documented as of this encounter
--- OUTSIDE RECORDS SUMMARY | 2024-10-23 09:44 | XMS_ITS | Encounter Summary ---
Author Organization [employer] [facility] Address [address] [place] [address] 7t [place] [address] Care Team Providers Care Superintendent Storage Area Name Role Phone Rosa Elliott DO Primary Care Provider Reason for Referral * Imaging (Routine) - Authorized Specialty Diagnoses / Procedures Referred By Tyrone t Referred To Contact Radiology Diagnoses Postmenopausal Procedures BD DEXA Axial Rosa Elliott DO [address] [place] [address] Phone: tel: fax: [address] Phone: tel: fax: Referral ID Status Reason Start Date Expiration Date V isits Requested Visits Authorized [id number] Authorized 10/08/2024 10/08/2025 1 1 * Imaging (Routine) - Authorized Specialty Diagnoses / Procedures Referred By Contac t Referred To Contact Radiology Diagnoses Breast pain, left Procedures BI Mammogram Diagnostic Tomosynthesis Bilateral Rosa Elliott DO [address] [place] [address] Phone: tel: fax: [address] Phone: tel: fax: Referral ID Status Reason Start Date Expiration Date V isits Requested Visits Authorized [id number] Authorized 10/08/2024 10/08/2025 1 1 * Imaging (Routine) - Authorized Specialty Diagnoses / Procedures Referred By Tyrone hale Referred To Contact Radiology Diagnoses Breast pain, left Procedures BI US Breast Complete Left Rosa Elliott DO [address] [place] [address] Phone: tel: fax: [address] Phone: tel: fax: Referral ID Status Reason Start Date Expiration Date V isits Requested Visits Authorized [id number] Authorized 10/08/2024 10/08/2025 1 1 Encounter Details Date Type Department Care Team (Late st Contact Info) Description 10/08/2024 9:45 AM EST Office Visit [facility] MED[facility]INE [address] [place] [address] Rosa Elliott DO [address] [place] [address] Essential hypertension (Primary Dx); Other hyperlipidemia; Depressive disorder; Hypothyroidism, unspecified type; Chronic migraine; Paresthesia of both lower extremities; Breast pain, left; Healthcare maintenance; Right hip pain; Other insomnia; Postmenopausal Social History Tobacco Use Types Packs/Day Years [...] Access Q2 Not on file 05/30/2024 Comments No Sex and Gender Information Value Date Recorded Sex Assigned at Female 06/06/2022 10:21 AM EDT Legal Sex Female 10:21 AM EDT Gender Identity Female 06/06/2022 10:21 AM EDT Sexual Orientation Straight 06/06/2022 10 :21 AM EDT documented as of this encounter Last Filed Vital Signs Vital Sign Reading Time Taken Comments Blood Pressure 154/94 10/08/2024 2:45 PM EST Pulse 69 10/08/2024 9:54 AM EST Temperature 36.2 ??C (97.1 ??F) 10/08/2024 9:54 AM ES T Respiratory Rate 21 10/08/2024 9:54 AM EST Oxygen Saturation 99% 10/08/2024 9:54 AM EST Inhaled Oxygen Concentration - - Weight 101 kg (223 lb) 10/08/2024 9:54 AM EST Height 160 cm (5' 3 ) 10/08/2024 9:54 AM EST Body Mass Index 39.5 10/08/2024 9:54 AM EST documented in this encounter Plan of Treatment Scheduled Orders Name Type Priority Associated Diagnoses Orde r Schedule BI US Breast Complete Left Imaging Routine Breast pain, left Expected: 10/08/2024, Expires: 12/08/2025 BI Mammogram Diagnostic Tomosynthesis Bilateral Imaging Routine Breast pain, left Expected: 10/08/2024, Expires: 12/08/2025 BD DEXA Axial Imaging Routine Postmenopausal Expected: 10/08/2024, Expires: 10/08/2025 documented as of this encounter Visit Diagnoses Diagnosis Essential hypertension- Primary Unspecified essential hypertension Other hyperlipidemia Depressive disorder Depressive disorder, not elsewhere classified Hypothyroidism, unspecified type Chronic migraine Paresthesia of both lower extremities Breast pain, left Healthcare maintenance Right hip pain Pain in joint, pelvic region and thigh Other insomnia Postmenopausal Asymptomatic postmenopausal status (age-related) (natural) documented in this encounter Additional Health Concerns Assessment Noted Time PHQ-9 Depression Total Score: 3 02/21/20 24 10:33 AM EDT documented as of this encounter Care Teams Superintendent Storage Area Relationship Specialty Start Date End Date Rosa Elliott DO [address] [place] [address] PCP - General Family Medicine 02/21/14 documented as of this encounter
--- OUTSIDE RECORDS SUMMARY | 2024-10-23 09:44 | XMS_ITS | Clinical Summary ---
Author Organization [employer] Address [address] [place] [address] [address] [place] [address] Care Team Providers Care Fabrication Machine Operator Name Role Phone EarlRosa Primary Care Provider Allergies Active Allergy Reactions Criticality Noted Date Comments Morphine 07/09/2013 Other Reaction(s): Rash/Dermatitis Medications * This document contains information received from the source organization and may not represent a complete record from that organization. atorvastatin (Lipitor) 10 MG tablet Take 1 tablet (10 mg) by mouth in the morning. 90 tablet 3 06/26/20 23 Active FLUoxetine (PROzac) 10 MG tablet Take 1 tablet (10 mg) by mouth in the morning. 90 tablet 06/26/20 23 Active hydrOXYzine pamoate (Vistaril) 25 MG capsule Take 1 capsule (25 mg) by mouth every 6 (six) hours if needed for anxiety. 30 capsule 2 06/26/20 23 Active levothyroxine (Synthroid, Levoxyl) 75 MCG tablet Take 1 tablet (75 mcg) by mouth before breakfast. 90 tablet 3 06/26/20 23 Active SUMAtriptan (Imitrex) 25 MG tablet TAKE 1 TABLET BY MOUTH ONE TIME IF NEEDED FOR MIGRAINE 9 tablet 2 06/26/20 23 Active lidocaine (Lidoderm) 5 % patchIndication s:Right hip pain Apply 1 patch topically Once per day. Remove & discard patch within 12 hours or as directed by MD. 30 patch 1 02/16/20 24 Active loratadine (Claritin) 10 MG tablet Take 1 tablet (10 mg) by mouth Once per day. 30 tablet 3 04/26/20 24 Active fluticasone (Flonase) 50 MCG/ACT nasal spray Administer 2 sprays into each nostril Once per day. Shake gently. Before first use, prime pump. After use, clean tip and replace cap. 16 g 3 04/26/20 24 2024 Active lisinopril 10 MG tabletIndicatio ns:Secondary hypertension TAKE 1 TABLET BY MOUTH EVERY DAY 90 tablet 1 06/03/20 24 Active acetaminophen (Tylenol 8 Hour) 650 MG ER tablet Take 1 tablet (650 mg) by mouth every 8 (eight) hours. 60 tablet 3 10/09/19 25 Active Diclofenac Sodium 1 % gelIndications: Right hip pain Apply 1 Application topically if needed in the morning, at noon, in the evening, and at bedtime (pain). 150 g 3 10/09/19 25 Active naproxen (Naprosyn) 500 MG tablet Take 1 tablet (500 mg) by mouth with breakfast and with evening meal. 30 tablet 1 10/09/19 25 Active traZODone (Desyrel) 150 MG tabletIndicatio ns:Other insomnia TAKE 1 TABLET BY MOUTH AT BEDTIME 30 tablet 3 10/09/19 25 Active baclofen (Lioresal) 10 MG tablet Take 1 tablet (10 mg) by mouth if needed in the morning and at bedtime for muscle spasms. 60 tablet 3 10/09/19 25 2025 Active topiramate (Topamax) 50 MG tablet Take 1 tablet (50 mg) by mouth at bedtime. 90 tablet 1 10/09/19 25 2025 Active acetaminophen (Tylenol 8 Hour) 650 MG ER tablet Take 1 tablet (650 mg) by mouth every 8 (eight) hours. 40 tablet 1 06/26/20 23 2024 Discontinued(R eorder (will not trigger notification to Pharmacy)) topiramate (Topamax) 50 MG tablet Take 50 mg by mouth at bedtime. 90 tablet 1 06/26/20 23 2024 Discontinued(R eorder (will not trigger notification to Pharmacy)) Diclofenac Sodium 1 % gelIndications: Right hip pain Apply 1 Application topically if needed each day (right hip pain). 50 g 02/16/20 24 2024 Discontinued(R eorder (will not trigger notification to Pharmacy)) naproxen (Naprosyn) 500 MG tablet TAKE 1 TABLET(500 MG) BY MOUTH IN THE MORNING AND AT BEDTIME NEEDED FOR MILD PAIN 10 tablet 06/04/20 24 2024 Discontinued(R eorder (will not trigger notification to Pharmacy)) traZODone (Desyrel) 150 MG tabletIndicatio ns:Other insomnia TAKE 1 TABLET BY MOUTH AT BEDTIME 30 tablet 09/09/19 25 2024 Discontinued(R eorder (will not trigger notification to Pharmacy)) cephalexin (Keflex) 500 MG capsule Take 1 capsule (500 mg) by mouth 4 times daily for 7 days. 28 capsule 10/09/19 25 2024 Active Problems Problem Noted Date Diagnosed Date Right hip pain 02/16/2024 Assessment & Plan (02/16/2024 3:19 PM EDT): -Pain in her right hip, sometimes moves to her thigh ,denies erythema nor swelling ,no trauma hx,taking tylenol w mild effect. Possible from OA. Symptoms are less suggestive for bursitis at this time. -right XR hip referred today -if normal but pt if painremains for another week to call to refer to orthopedic -Warm compress -Lidoderm patch -diclonac cream -tylenol prn Chronic migraine 06/26/2023 Essential hypertension 11/07/2022 Assessment & Plan (02/16/2024 3:18 PM EDT): BP 144/86 -Possible reactive to pain -to bring readings at next apt w PCP Hyperlipidemia 11/07/2022 Hypothyroidism 11/07/2022 History of hepatitis C 11/07/2022 Chronic pain of left ankle 11/07/2022 Chronic constipation 01/08/2018 BMI 40.0-44.9, adult 09/28/2015 Restless leg syndrome 09/28/2015 Resolved Problems Problem Noted Date Diagnosed Date Resolved Date Fatigue 02/16/2024 04/26/2024 Assessment & Plan (02/16/2024 3:19 PM EDT): -Reports feeling fatigue for several weeks,denies any resp, CV, or GI symptoms, no melebas no BRPR ,states to be compliant w her meds, denies night sweats nor fever ,denies weight loss ,no LDN 01/2023 CBC,chem wnl , TSH 4.76 -will start w basic labs TSH/T4 ,chem,Cbc,hb1AC,hep C VL -order today -will call w result -will need to f w PCP Grief 11/07/2022 04/26/2024 Assessment & Plan (02/16/2024 3:18 PM EDT): -hx of depression/anxiety -BH to see pt today here in office w plan for outpt referral to therapy Encounters Date Type Department Care Team Description 10/08/2024 9:45 AM EST Office Visit [facility] [address] [place] [phone] Rosa Elliott DO Essential hypertension (Primary Dx); Other hyperlipidemia; Depressive disorder; Hypothyroidism, unspecified type; Chronic migraine; Paresthesia of both lower extremities; Breast pain, left; Healthcare maintenance; Right hip pain; Other insomnia; Postmenopausal 10/08/2024 Travel 09/10/2024 Refill [facility] [address] [place] [address] Rayna Ferrer MD Secondary hypertension 09/09/2024 Refill [facility] [address] [place] [phone] Rosa Elliott DO Other insomnia 08/12/2024 Telephone [facility] [address] [place] [address] Rosa Elliott DO 08/01/2024 Telephone [facility] [address] [place] [address] Adelaide Camara MA Recall 08/01/2024 Travel from Last 3 Months Immunizations Name Administration Dates Next Due DTaP 09/14/2010 Hep A, Adult 07/20/2011,08/31/2010 Hep B, adult 07/20/2011,10/26/2010,08/31/2010 Influenza High-dose Quadriva lent Preservative Free 06/26/2023,04/22/2022,04/30/2021 Influenza, Split (incl. val fied surface antigen) 05/20/2013,04/25/2012 Influenza, trivalent, adjuvanted 04/16/2024 Pfizer Covid-19 Vaccine 12+ 06/07/2024, 3 Pneumococcal Conjugate PCV 13 04/30/2021 Pneumococcal Conjugate PCV 20 06/26/2023 TD (adult), 2 Lf tetanus tox oid, preservative free, adsorbed 08/19/2012 Tdap 01/18/2023,09/14/2010 Zoster, Recombinant 08/03/2021,04/30/2021,2020 Zoster, live 03/01/2016 Family History Medical History Relation Name Comments Coronary artery disease Father Diabetes Father Gout Father Heart failure Other Son Diabetes Son Relation Name Status Comments Father Other Son Son Social History Tobacco Use Types Packs/Day Years Used Date Smoking Tobacco: Never Passive Smoke Exposure: Never Smokeless Tobacco: Never Tobacco Cessation:Counseling Given: Not Answered Alcohol Use Standard Drinks/Week Comments Never 0 [...] Orientation Straight 06/06/2022 10 :21 AM EDT Last Filed Vital Signs Vital Sign Reading [...] Mass Index 39.5 10/08/2024 9:54 AM EST Plan of Treatment Health Maintenance Due Date Last Done Comments CT Colonography 1955 Colonoscopy 1955 Colorectal Cancer Screening 1955 FIT DNA/Cologuard 1955 FIT 1955 FOBT 1955 Sigmoidoscopy 1955 Alcohol/Substance Use Screening 1967 RSV Patients and Patients Aged 60 years or older (1 - Risk 60-74 years 1-dose series) 2015 Mammogram 11/03/2024 11/04/2023, 12/0 02/2022, 07/13/2022, Additional history exists Depression Screening 02/20/2025 02/21/2024, 02/21/20 24 SDOH Screening 05/30/2025 05/30/2024 Tobacco Screening 10/08/2025 10/08/2024 Lipid Panel 06/05/2029 06/05/2024, 01/05, 02/24/2021, Additional history exists DTaP/Tdap/Td Vaccines (5 - Td or Tdap) 01/18/2033 01/18/2023, 08/19/2012, 09/14/2010, Additional history exists Hepatitis A Vaccines Completed 07/20/2011, 08/31/19 11 Hepatitis B Vaccines Completed 07/20/2011, 10/26/2010, 08/31/2010 Zoster Vaccines Completed 08/03/2021, 04/08, 02/22/2021, Additional history exists Pneumococcal Vaccine: 50+ Years Completed 06/26/2023, 04/30/2021 Influenza Vaccine Completed 04/16/2024, , 04/22/2022, Additional history exists COVID-19 Vaccine Completed 06/07/2024, , 04/22/2022, Additional history exists HIB Vaccines Aged Out No longer eligi ble based on patient's age to complete this topic HPV Vaccines Aged Out No longer eligi ble based on patient's age to complete this topic IPV Vaccines Aged Out No longer eligi ble based on patient's age to complete this topic Meningococcal Vaccine Aged Out No roscoe angelina eligible based on patient's age to complete this topic RSV under 20 months Aged Out No longe r eligible based on patient's age to complete this topic Rotavirus Vaccines Aged Out No longer eligible based on patient's age to complete this topic Procedures Procedure Name Priority Date/Time Associated Diagnosis Comments LIPID PANEL, STANDARD Routine 06/05/2024 8:52 AM EDT Essential hypertension BI MAMMOGRAM SCREENING TOMOSYNTHESIS BILATERAL Routine 11/04/2023 9:15 AM EDT from Last 3 Months or Most Recently Relevant to Health Maintenance Results * (ABNORMAL) Lipid Panel, Standard (06/05/2024 8:52 AM EDT) Triglycerides 126 <150 mg/dL [facility] Comment:Desirable Triglyceri de: less than 150 mg/dLBorderline High Triglyceride 150-199 mg/dLHigh Triglyceride: 200-499 mg/dLVery High Triglyceride: greater than or equal to 5OO mg/dL Cholesterol 215(H) <200 mg/dL [facility] Comment:Desirable Cholestero l: less than 200 mg/dLBorderline High Cholesterol: 200-239 mg/dLHigh Cholesterol: greater than 239 mg/dL LDL Cholesterol Calculated 138(H) <100 mg/dL [facility] Comment:Desirable LDL: less than 100 mg/dLNear Optimal/Above Optimal LDL: 110- 129 mg/dLBorderline High LDL: 130-159 mg/dLHigh LDL: 160-189 mg/dLVery High LDL: greater than or equal to 190 mg/dL HDL Cholesterol 52 >40 mg/dL [facility] Comment:Desirable HDL: great er than 40 mg/dL Note: This HDL assay may give artificially low results in patients with liver disease. Blood Venous blood specimen / Unknown 06/05/2024 8:52 AM EDT 06/05/2024 11:23 AM EDT Rosa Elliott DO LAB BLOOD ORDERABLES Final R esult [facility] [address] [place] [address] [phone] * BI Mammogram Screening Tomosynthesis Bilateral (11/04/2023 9:15 AM EDT) Anatomical Region Laterality Modality Breast Bilateral Mammography 11/04/2023 9:15 AM EDT Narrative 11/15/2023 12:00 AM EDT ? [facility] ? [address] ?[place] [address] ? Mammography Report ? Signed ? Patient: Litzy,Natalie M ?MR#: [id number] ?? 21 ? : 1955 ?Acct:[id number] ? Age/Sex: 68 / F ?ADM Date: 03/30/24 ? Loc: HO.MAMMO ? Attending Oc Elliott DO ? Ordering Physician: Rosa Elliott DO ?Results: 2B ?? enign Findings ? Date of Service: 11/04/23 ?Follow Up: 1 Year From Orig ?? inal Mammogram ? Procedure(s): MM tomosynthesis screening BI ?? Accession Number(s): [id number] ? cc: Rosa Elliott DO ? EXAMINATION: ?? MM SCREENING DIGITAL BREAST TOMOSYNTHESIS, BILATERAL ? CLINICAL INFORMATION: ? Screening. Asymptomatic. ? COMPARISON: ?? Mammography: This study is compared with prior exams dating back to ?? 2017. ? TECHNIQUE: ?? Digital breast tomosynthesis is performed in both the craniocaudal and ?? mediolateral oblique views along with computer-aided detection (CAD). ?? Synthesized 2D images are generated from the tomosynthesis. ? FINDINGS: ?? There are scattered areas of fibroglandular density (ACR BI-RADS breast ?? composition Category b). ? There are no significant masses, abnormal calcifications, or other ?? abnormalities. ?? There is a biopsy tissue marker in the left breast. This indicates a ?? site of prior benign percutaneous biopsy. ? Bilateral, benign calcifications are present in each breast. ? MM/MM tomosynthesis screening BI ?? IMPRESSION: ?? No mammographic evidence of malignancy. ? ASSESSMENT: ? BI-RADS BI-RADS 2 - Benign Findings ? RECOMMENDATION: ?? Routine annual mammography screening. ? 1 year F/U ? This examination should not preclude the clinical evaluation of a ?? suspicious palpable abnormality. ? This patient's information was entered into a reminder system with a ?? target due date for their next mammogram. ? Dictated By: ?Vika Mendoza MD ? Signed By: ?<Electronically signed by Vika Mendoza MD in OV> ? 11/14/236 ? DD/ 4 ? TD/TT: ? Rope Tow Operator: ? Procedure Note Donotuseinterpreter, Image - 11/15/2023 [facility] [address] [place], [place] [address] Mammography Report Signed Patient: Natalie Mcghee MMR#: [id number] 21 : 5Acct:[id number] Age/Sex: 68 / FADM Date: 11/04/23 Loc: HO.MAMMO Attending Dr: Rosa Elliott DO Ordering Physician: Rosa Elliottults: 2B enign Findings Date of Service: 11/04/23Follow Up: 1 Year From Orig inal Mammogram Procedure(s): MM tomosynthesis screening BI Accession Number(s): [id number] cc: Rosa Elliott DO EXAMINATION: MM SCREENING DIGITAL BREAST TOMOSYNTHESIS, BILATERAL CLINICAL INFORMATION: Screening. Asymptomatic. COMPARISON: Mammography: This study is compared with prior exams dating back to 2018. TECHNIQUE: Digital breast tomosynthesis is performed in both the craniocaudal and mediolateral oblique views along with computer-aided detection (CAD). Synthesized 2D images are generated from the tomosynthesis. FINDINGS: There are scattered areas of fibroglandular density (ACR BI-RADS breast composition Category b). There are no significant masses, abnormal calcifications, or other abnormalities. There is a biopsy tissue marker in the left breast. This indicates a site of prior benign percutaneous biopsy. Bilateral, benign calcifications are present in each breast. MM/MM tomosynthesis screening BI IMPRESSION: No mammographic evidence of malignancy. ASSESSMENT: BI-RADS BI-RADS 2 - Benign Findings RECOMMENDATION: Routine annual mammography screening. 1 year F/U This examination should not preclude the clinical evaluation of a suspicious palpable abnormality. This patient's information was entered into a reminder system with a target due date for their next mammogram. Dictated By: Vika Mendoza MD Signed By: <Electronically signed by Vika Mendoza MD in OV> 11/14/23 2356 DD/ 0915 TD/TT: Rope Tow Operator: Rosa Elliott DO IMG BI PROCEDURES Final Resu lt from Last 3 Months or Most Recently Relevant to Health Maintenance Insurance [facility] MEDICARE ADVANTAGE HMO Care Teams Fabrication Machine Operator Relationship Specialty Start Date End Date Rosa Elliott DO [address] [place] [phone] PCP - General Family Medicine 02/21/14
--- OUTSIDE RECORDS SUMMARY | 2024-10-23 09:44 | XMS_ITS | Encounter Summary ---
Author Organization [employer] Address [address] [facility] [address] [place] [address] Care Team Providers Care Die Press Operator Name Role Phone MarkosRosa kessler Primary Care Provider Encounter Details Date Type Department Care Team (Latest Contact Info) Description 10/08/2024 Travel Social History Tobacco Use Types Packs/Day Years [...] documented as of this encounter Care Teams Die Press Operator Relationship Specialty Start Date End Date Rosa Elliott DO [address] [place] [address] PCP - General Family Medicine 02/21/14 documented as of this encounter
--- OUTSIDE RECORDS SUMMARY | 2024-10-23 09:44 | XMS_ITS | Encounter Summary ---
Author Organization [employer] Address [address] [facility] [address] [place] [address] Care Team Providers Care Leather Belt Loop Cutter Name Role Phone EarlRosa Primary Care Provider [phone] Reason for Visit * Reason Comments Med Refill Encounter Details Date Type Department Care Team ([facility] st Contact Info) Description 09/10/2024 Refill [facility] [address] [place], [place] [phone] Rayna Ferrer MD [address] [place] [address] Secondary hypertension Social History Tobacco Use Types [...] documented as of this encounter Care Teams Leather Belt Loop Cutter Relationship Specialty Start Date End Date Rosa Elliott DO [address] [place] [phone] PCP - General Family Medicine 02/21/14 documented as of this encounter
== END 2024-10-23 08:51 | disposition home or self-care (01) ==
LOC: HO.MAMMO 08:50
PROVIDERS: PCP Family Medicine; Visit Provider Family Medicine
DX: Z13.820 Encounter for screening for osteoporosis (principal); Z78.0 Asymptomatic menopausal state
CPT/HCPCS: 77080

== ENCOUNTER → 2024-10-23 09:15 | Outpatient (BNV) | payer MEDICARE, SELFPAY | PROVIDERS: PCP Family Medicine; Visit Provider Radiology Diagnostic Radiology | DX: E28.39 Other primary ovarian failure (principal) | CPT/HCPCS: 77080 ==

== ENCOUNTER → 2024-11-08 09:30 | Outpatient (BNV) | payer MEDICARE, SELFPAY | PROVIDERS: PCP Family Medicine; Visit Provider Internal Medicine | DX: N63.21 Unspecified lump in the left breast, upper outer quadrant (principal) | CPT/HCPCS: 76642; 77066; G0279 ==

== ENCOUNTER 2024-11-08 09:38 | Outpatient (REF) | payer MEDICARE, SELFPAY ==
--- NOTE | ~2024-11-08 | US_ITS ---
EXAMINATION: MM DIAGNOSTIC DIGITAL BREAST TOMOSYNTHESIS, BILATERAL Limited left breast ultrasound. CLINICAL INFORMATION: Left breast palpable lump. COMPARISON: Mammography: Comparison is made with relevant prior exams. TECHNIQUE: Digital breast mammography with tomosynthesis is performed in both the craniocaudal and mediolateral oblique views along with computer-aided detection (CAD). FINDINGS: The breasts are heterogeneously dense, which may obscure small masses (ACR BI-RADS breast composition Category c). BB marker in the upper outer breast without underlying abnormality. There are no significant masses, abnormal calcifications, or other abnormalities. Targeted color Doppler ultrasound demonstrates a simple to minimally complicated cyst at 1:00 7 cm from the nipple measuring approximately 4 x 3 x 3 mm which correlates with the patient's palpable lump and is benign. Results are provided to the patient at time of visit by the technologist. US/US breast LT limited mamm only IMPRESSION: Left: Benign simple to minimally complicated cyst in the area the patient's left palpable lump. Recommend clinical evaluation follow-up. Right: Negative. ASSESSMENT: BI-RADS BI-RADS 2 - Benign Findings RECOMMENDATION: 1 year F/U This patient's information was entered into a reminder system with a target due date for their next mammogram. Electronically signed by: Marquita Reyes DO 11/08/2024 12:31 PM EDT
--- OUTSIDE RECORDS SUMMARY | 2024-11-08 10:39 | XMS_ITS | Encounter Summary ---
Author Organization [employer] [facility] Address [address] [place] [address] [address] [place] [address] Care Team Providers Care Emergency Manager Name Role Phone Rosa Elliott DO Primary Care Provider [phone] Encounter Details Date Type Department Care Team (Late st Contact Info) Description 07/26/2022 Abstract [facility] [address] [place] [address] Rosa Elliott DO [address] [place] [address] Social History Tobacco Use Types Packs/Day Years [...] on filedocumented in this encounter Care Teams Emergency Manager Relationship Specialty Start Date End Date Rosa Elliott DO [address] [place], [place] [phone] PCP - General Family Medicine 02/21/14 documented as of this encounter
--- OUTSIDE RECORDS SUMMARY | 2024-11-08 10:40 | XMS_ITS | Clinical Summary ---
Author Organization [facility] Address [address] [place] [address] Phone Care Team Providers Care Insect Control Aide Name Role Phone Physician, Pcp Unknown Primary Care Provider Mariela vailable Allergies Active Allergy Reactions Criticality Noted Date Comments Morphine Rash 11/02/2024 Encounters Date Type Department Care Team Description 11/02/2024 2:31 PM EDT - 11/02/2024 9:39 PM EDT Emergency [facility] Emergency [address] [place] [address] Claudy Escobar MD Nonintractable headache, unspecified chronicity pattern, unspecified headache type (Primary Dx) Discharge Disposition: Home or Self Care from Last 3 Months Family History Medical History Relation Name Comments [...] Value Date Recorded Sex Assigned at Female 11/02/2024 4:59 PM EDT Legal Sex Female 4:32 PM EST Gender Identity Female 11/02/2024 4:59 PM EDT Sexual Orientation Straight 11/02/2024 4: 59 PM EDT Obstetrics History Last Filed Vital Signs Vital Sign Reading Time Taken Comments Blood Pressure 142/87 11/02/2024 9:35 PM EDT Pulse 87 11/02/2024 9:35 PM EDT Temperature 37.4 ??C (99.3 ??F) 11/02/2024 9:35 PM ED T Respiratory Rate 16 11/02/2024 9:35 PM EDT Oxygen Saturation 93% 11/02/2024 9:35 PM EDT Inhaled Oxygen Concentration - - Weight 86.2 kg (190 lb) 11/02/2024 1:22 PM EDT Height 160 cm (5' 3 ) 11/02/2024 1:22 PM EDT Body Mass Index 33.66 11/02/2024 1:22 PM EDT Plan of Treatment Health Maintenance Due Date Last Done Comments Breast Cancer Screening 1955 Colorectal Cancer Screening: Colonoscopy 11/02/2024 Falls Risk Assessment 11/02/2024 Hepatitis C Screening 11/02/2024 Medicare Annual Wellness Visit 11/02/2024 Social Influencers of Health Screening 11/02/2024 Depression Screening 02/20/2025 02/21/2024 Hypertension/CHF/CAD Annual BMP Blood Test 11/02/2025 11/02/2024 Cholesterol Screening (Lipid Panel) 06/05/2029 06/05/2024 RSV Immunization Adult Patients (1 - 1-dose 75+ series) 2030 DTaP,Tdap,and Td Vaccines (5 - Td or Tdap) 01/18/2033 01/18/2023, 08/19/2012, 09/14/2010, Additional history exists Osteoporosis Screening (Bone Density Screening) 10/23/2034 10/23/2024 Hepatitis A Vaccines Aged Out 07/20/2011, 08/31/19 11 No longer eligible based on patient's age to complete this topic Hepatitis B Vaccines Completed 07/20/2011, 10/26/2010, 08/31/2010 [...] to complete this topic RSV Immunization Patients Under 20 months Aged Out No longer eligible based on patient's age to complete this topic Varicella Vaccines Aged Out No longer eligible based on patient's age to complete this topic Procedures Procedure Name Priority Date/Time Associated Diagnosis Comments RESPIRATORY VIRUS PANEL MOLECULAR STUDY STAT 11/02/2024 7:[address] HEAD WO CONTRAST STAT 11/02/2024 5 :52 PM EDT [id number], RSV, FLU A AND B QUALITATIVE RT-PCR, INTERNAL LAB STAT 11/02/2024 3:06 PM EDT CBC WITH AUTO DIFFERENTIAL STAT 11/02/2024 3:05 PM EDT LIPASE STAT 11/02/2024 3:05 PM EDT COMPREHENSIVE METABOLIC PANEL STAT 11/02/2024 3:05 PM EDT CBC AND DIFFERENTIAL STAT 11/02/2024 3:05 PM EDT from Last 3 Months Results * Respiratory virus panel molecular study (11/02/2024 7:54 PM EDT) Adenovirus Detection by PCR Not Detected Not Detected LAB MICROBIOLOGY METHOD 11/02/2024 9:11 PM EDT [facility] Influenza A PCR Not Detected Not Detected LAB MICROBIOLOGY METHOD 11/02/2024 9:11 PM EDT [facility] Influenza B PCR Not Detected Not Detected LAB MICROBIOLOGY METHOD 11/02/2024 9:11 PM EDT [facility] Coronavirus 229E Not Detected Not Detected LAB MICROBIOLOGY METHOD 11/02/2024 9:11 PM EDT [facility] Coronavirus HKU1 Not Detected Not Detected LAB MICROBIOLOGY METHOD 11/02/2024 9:11 PM EDT [facility] Coronavirus OC43 Not Detected Not Detected LAB MICROBIOLOGY METHOD 11/02/2024 9:11 PM EDT [facility] Coronavirus NL63 Not Detected Not Detected LAB MICROBIOLOGY METHOD 11/02/2024 9:11 PM EDT [facility] Parainfluenza Virus 1 Not Detected Not Detected LAB MICROBIOLOGY METHOD 11/02/2024 9:11 PM EDT [facility] Parainfluenza Virus 2 Not Detected Not Detected LAB MICROBIOLOGY METHOD 11/02/2024 9:11 PM EDT [facility] Parainfluenza Virus 3 Not Detected Not Detected LAB MICROBIOLOGY METHOD 11/02/2024 9:11 PM EDT [facility] Parainfluenza Virus 4 Not Detected Not Detected LAB MICROBIOLOGY METHOD 11/02/2024 9:11 PM EDT [facility] RSV PCR Not Detected Not Detected LAB MICROBIOLOGY METHOD 11/02/2024 9:11 PM EDT [facility] Human Metapneumovirus A and B Not Detected Not Detected LAB MICROBIOLOGY METHOD 11/02/2024 9:11 PM EDT [facility] Rhinovirus/Entero virus Not Detected Not Detected LAB MICROBIOLOGY METHOD 11/02/2024 9:11 PM EDT [facility] Bordetella pertussis Not Detected Not Detected LAB MICROBIOLOGY METHOD 11/02/2024 9:11 PM EDT [facility] Bordetella parapertussis Not Detected Not Detected LAB MICROBIOLOGY METHOD 11/02/2024 9:11 PM EDT [facility] Mycoplasma pneumo by PCR Not Detected Not Detected LAB MICROBIOLOGY METHOD 11/02/2024 9:11 PM EDT [facility] Chlamydia pneumoniae Not Detected Not Detected LAB MICROBIOLOGY METHOD 11/02/2024 9:11 PM EDT [facility] SARS COV-2 Not Detected Not Detected LAB MICROBIOLOGY METHOD 11/02/2024 9:11 PM EDT [facility] Swab Both anterior nares / Unknown Non-blood Collection / Unknown 11/02/2024 7:54 PM EDT 11/02/2024 8:15 PM EDT Narrative [facility] - 11/02/2024 9:11 PM EDT Testing was performed using the [employer] Respiratory Pathogen PCR Assay. All results must be correlated with the clinical findings. Results should not be used as the sole basis for diagnosis. False Negative results may occur from the presence of sequence variants in the region targeted by the assay or the presence of inhibitors. Results may be affected by concurrent antiviral/antimicrobial therapy or levels of organisms that are below the limit of detection. Claudy Escobar MD [facility] Final Result [facility] [address] [place] [address], * CT Head wo Contrast (11/02/2024 5:52 PM EDT) Anatomical Region Laterality Modality Head and Neck Computed Tomogra phy 11/02/2024 6:13 PM EDT Impressions 11/02/2024 6:13 PM EDT Impression: 1. No acute intracranial abnormalities. This document has been electronically signed by: Polo Valle MD on 11/02/2024 18:13:32 Narrative 11/02/2024 6:13 PM EDT INDICATION: Headache, classic migraine CT head without contrast Comparison: None Findings: No intracranial mass, midline shift, hydrocephalus, or acute hemorrhage. No CT evidence of acute ischemia. Visualized paranasal sinuses and mastoid air cells normal. Orbits unremarkable. No skull fracture. Procedure Note Polo Valle MD - 11/02/2024 INDICATION: Headache, classic migraine CT head without contrast Comparison: None Findings: No intracranial mass, midline shift, hydrocephalus, or acute hemorrhage. No CT evidence of acute ischemia. Visualized paranasal sinuses and mastoid air cells normal. Orbits unremarkable. No skull fracture. IMPRESSION: Impression: 1. No acute intracranial abnormalities. This document has been electronically signed by: Polo Valle MD on 11/02/2024 18:13:32 [facility] Shawn ARANGO IM CT PROCEDURES Final Result * [id number], RSV, Influenza A and B qualitative RT-PCR (11/02/2024 3:06 PM EDT) Influenza A PCR Not Detected Not Detected LAB MICROBIOLOGY METHOD 11/02/2024 3:57 PM EDT [facility] Influenza B PCR Not Detected Not Detected LAB MICROBIOLOGY METHOD 11/02/2024 3:57 PM EDT [facility] RSV PCR Not Detected Not Detected LAB MICROBIOLOGY METHOD 11/02/2024 3:57 PM EDT [facility] SARS COV-2 Not Detected Not Detected LAB MICROBIOLOGY METHOD 11/02/2024 3:57 PM EDT [facility] Swab Both anterior nares / Unknown Non-blood Collection / Unknown 11/02/2024 3:06 PM EDT 11/02/2024 3:16 PM EDT Narrative [facility] - 11/02/2024 3:57 PM EDT Disclaimer: ??Testing was performed using the [employer] GeneXpert Xpress SARS-CoV-2 _Flu_RSV PLUS PCR assay. ??The manner in which this information is used to guide patient care is the responsibility of the healthcare provider. ??Results should be correlated with the clinical history, epidemiological data, and other data available to the clinician evaluating the patient. ??Negative results do not preclude infection. ??This test has been authorized by the FDA under an Emergency Use Authorization (EUA). ??This test is only authorized for the duration of time the declaration that circumstances exist justifying the authorization of the emergency use of in vitro diagnostic tests for detection of SARS-CoV-2 virus and/or diagnosis of COVID-19 infection under section 564 (b) (1) of the Act, 21 U.S.C 360bbb-3 (b) (1), unless the authorization is terminated or revoked sooner. ?? Reference Range: Not Detected Fact sheet for Healthcare providers can be found at https://www.fda.gov/media/828641/download. ?? Fact sheet for Healthcare patients can be found at https://www.fda.gov/media/406967/download. [facility] Franklin Escobar MD LAB MICROBIOLOGY - [facility] Final Result [facility] [address] [place] [address], * (ABNORMAL) CBC auto differential (11/02/2024 3:05 PM EDT) WBC 4.3(L) 4.8 - 10.8 K/mcL LAB HEMETOLOGY METHOD 11/02/2024 3:48 PM EDT [facility] RBC 5.30(H) 3.80 - 4.80 M/mcL LAB HEMETOLOGY METHOD 11/02/2024 3:48 PM EDT [facility] Hemoglobin 15.2 11.5 - 16.0 g/dL LAB HEMETOLOGY METHOD 11/02/2024 3:48 PM EDT [facility] Hematocrit 48.0(H) 35.0 - 47.0 % LAB HEMETOLOGY METHOD 11/02/2024 3:48 PM EDT [facility] MCV 90.2 79.0 - 98.0 FL LAB HEMETOLOGY METHOD 11/02/2024 3:48 PM EDT [facility] MCH 28.6 27.0 - 32.0 pcg LAB HEMETOLOGY METHOD 11/02/2024 3:48 PM EDT [facility] MCHC 31.7(L) 32.0 - 37.0 g/dL LAB HEMETOLOGY METHOD 11/02/2024 3:48 PM EDT [facility] RDW 13.9 11.0 - 15.0 % LAB HEMETOLOGY METHOD 11/02/2024 3:48 PM EDT [facility] Platelets 114(L) 130 - 400 K/mcL LAB HEMETOLOGY METHOD 11/02/2024 3:48 PM EDT [facility] MPV 10.7 7.0 - 11.0 FL LAB HEMETOLOGY METHOD 11/02/2024 3:48 PM EDT [facility] NRBC 0.0 <1.0 % LAB HEMETOLOGY METHOD 11/02/2024 3:48 PM EDT [facility] NRBC Absolute 0.00 <0.10 K/mcL LAB HEMETOLOGY METHOD 11/02/2024 3:48 PM EDT [facility] Neutrophils Relative 61.6 % LAB HEMETOLOGY METHOD 11/02/2024 3:48 PM [facility] Lymphocytes Relative 16.6 % [facility] Monocytes Relative 21.4 % LAB HEMETOLOGY METHOD 11/02/2024 3:48 PM EDT [facility] Eosinophils Relative 0.0 % LAB HEMETOLOGY METHOD 11/02/2024 3:48 PM EDT [facility] Basophils Relative 0.2 % LAB HEMETOLOGY METHOD [facility] Immature Granulocytes Relative 0.2 % LAB HEMETOLOGY METHOD 11/02/2024 3:48 PM EDT [facility] Neutrophils Absolute 2.67 1.50 - 7.00 K/mcL LAB HEMETOLOGY METHOD 11/02/2024 3:48 PM EDT [facility] Lymphocytes Absolute 0.72(L) 1.00 - 5.00 K/[facility] LAB HEMETOLOGY METHOD 11/02/2024 3:48 PM EDT [facility] Monocytes Absolute 0.93 0.20 - 1.00 K/[facility] LAB HEMETOLOGY METHOD 11/02/2024 3:48 PM EDT [facility] Eosinophils Absolute 0.00 0.00 - 0.50 K/[facility] LAB HEMETOLOGY METHOD 11/02/2024 3:48 PM EDT [facility] Basophils Absolute 0.01 0.00 - 0.20 K/[facility] LAB HEMETOLOGY METHOD 11/02/2024 3:48 PM EDT [facility] Immature Granulocytes Absolute 0.01 0.00 - 0.03 K/[facility] LAB HEMETOLOGY METHOD 11/02/2024 3:48 PM EDT [facility] Blood Venous blood specimen / Unknown Venipuncture / Unknown 11/02/2024 3:05 PM EDT 11/02/2024 3:16 PM EDT us Claudy Escobar MD LAB BLOOD ORDERABLES Final Resu lt [facility] [address] [place] [address], * Lipase (11/02/2024 3:05 PM EDT) Lipase 27 13 - 75 unit/L LAB CHEMISTRY METHOD 11/02/2024 3:52 PM EDT [facility] Blood Venous blood specimen / Unknown Venipuncture / Unknown 11/02/2024 3:05 PM EDT 11/02/2024 3:16 PM EDT us Claudy Escobar MD LAB BLOOD ORDERABLES Final Resu lt [facility] [address] [place] [address], * Comprehensive metabolic panel (11/02/2024 3:05 PM EDT) Sodium 136 133 - 145 mmol/L LAB CHEMISTRY METHOD 11/02/2024 3:52 PM EDT [facility] Potassium 4.3 3.5 - 5.5 mmol/L LAB CHEMISTRY METHOD 11/02/2024 3:52 PM [facility] Chloride 104 96 - 110 mmol/L LAB CHEMISTRY METHOD 11/02/2024 3:52 PM [facility] CO2 26 21 - 32 mmol/L LAB CHEMISTRY METHOD 11/02/2024 3:52 PM [facility] Anion Gap 6 3 - 11 LAB CHEMISTRY METHOD 11/02/2024 3:52 PM [facility] Glucose 97 70 - 100 mg/dL LAB CHEMISTRY METHOD 11/02/2024 3:52 PM [facility] BUN 17 5 - 25 mg/dL LAB CHEMISTRY METHOD 11/02/2024 3:52 PM [facility] Creatinine 0.85 0.50 - 1.10 mg/dL LAB CHEMISTRY METHOD 11/02[facility]24 [facility] eGFR 74 >=60 mL/min/1. 73m2 LAB CHEMISTRY METHOD 11/02/2024 3:52 PM [facility] Comment:Calculation based on the??Chronic Kidney Disease Epidemiology Collaboration (CKD-EPI) equation refit??without adjustment for race. BUN/Creatinine Ratio 20.0 LAB CHEMISTRY METHOD 11/02/2024 3:52 PM [facility] Calcium 9.0 8.5 - 10.5 mg/dL LAB CHEMISTRY METHOD 11/02/2024 3:52 PM [facility] AST (SGOT) 22 10 - 42 unit/L LAB CHEMISTRY METHOD 11/02/2024 3:52 PM EDT [facility] ALT (SGPT) 24 10 - 60 unit/L LAB CHEMISTRY METHOD 11/02/2024 3:52 PM EDT [facility] Alkaline Phosphatase 69 42 - 121 unit/L LAB CHEMISTRY METHOD 11/02/2024 3:52 PM EDT [facility] Total Protein 7.5 6.0 - 8.0 g/dL LAB CHEMISTRY METHOD 11/02/2024 3:52 PM EDT [facility] Albumin 4.0 3.2 - 5.0 g/dL LAB CHEMISTRY METHOD 11/02/2024 3:52 PM EDT [facility] Total Bilirubin 0.7 0.0 - 1.4 mg/dL LAB CHEMISTRY METHOD 11/02/2024 3:52 PM EDT [facility] Blood Venous blood specimen / Unknown Venipuncture / Unknown 11/02/2024 3:05 PM EDT 11/02/2024 3:16 PM EDT Claudy Franklin Escobar MD LAB BLOOD ORDERABLES Final Resu lt [facility] [address] [place] [address], from Last [address] [place] [address] [employer] MEDICARE Care Teams Insect Control Aide Relationship Specialty Start Date End Date Physician, Pcp Unknown PCP - General 11/02/24
--- OUTSIDE RECORDS SUMMARY | 2024-11-08 10:40 | XMS_ITS | Clinical Summary ---
Author Organization [employer] Address [address] [place] [address] [address] [place] [address] Care Team Providers Care Director Of Analytical Development Name Role Phone EarlRosa Primary Care Provider Allergies Active Allergy Reactions Criticality Noted Date Comments Morphine 07/09/2013 Other Reaction(s): Rash/Dermatitis Medications * This document contains information received from the source organization and may not represent a complete record from that organization. atorvastatin (Lipitor) 10 MG tablet Take 1 tablet (10 mg) by mouth in the morning. 90 tablet 3 3 Active FLUoxetine (PROzac) 10 MG tablet Take 1 tablet (10 mg) by mouth in the morning. 90 tablet 3 Active hydrOXYzine pamoate (Vistaril) 25 MG capsule Take 1 capsule (25 mg) by mouth every 6 (six) hours if needed for anxiety. 30 capsule 2 3 Active levothyroxine (Synthroid, Levoxyl) 75 MCG tablet Take 1 tablet (75 mcg) by mouth before breakfast. 90 tablet 3 3 Active SUMAtriptan (Imitrex) 25 MG tablet TAKE 1 TABLET BY MOUTH ONE TIME IF NEEDED FOR MIGRAINE 9 tablet 2 3 Active lidocaine (Lidoderm) 5 % patchIndications :Right hip pain Apply 1 patch topically Once per day. Remove & discard patch within 12 hours or as directed by MD. 30 patch 1 4 Active loratadine (Claritin) 10 MG tablet Take 1 tablet (10 mg) by mouth Once per day. 30 tablet 3 4 Active fluticasone (Flonase) 50 MCG/ACT nasal spray Administer 2 sprays into each nostril Once per day. Shake gently. Before first use, prime pump. After use, clean tip and replace cap. 16 g 3 4 025 Active lisinopril 10 MG tabletIndication s:Secondary hypertension TAKE 1 TABLET BY MOUTH EVERY DAY 90 tablet 1 4 Active acetaminophen (Tylenol 8 Hour) 650 MG ER tablet Take 1 tablet (650 mg) by mouth every 8 (eight) hours. 60 tablet 3 5 Active Diclofenac Sodium 1 % gelIndications:R ight hip pain Apply 1 Application topically if needed in the morning, at noon, in the evening, and at bedtime (pain). 150 g 3 5 Active naproxen (Naprosyn) 500 MG tablet Take 1 tablet (500 mg) by mouth with breakfast and with evening meal. 30 tablet 1 5 Active traZODone (Desyrel) 150 MG tabletIndication s:Other insomnia TAKE 1 TABLET BY MOUTH AT BEDTIME 30 tablet 3 5 Active baclofen (Lioresal) 10 MG tablet Take 1 tablet (10 mg) by mouth if needed in the morning and at bedtime for muscle spasms. 60 tablet 3 5 026 Active topiramate (Topamax) 50 MG tablet Take 1 tablet (50 mg) by mouth at bedtime. 90 tablet 1 5 026 Active cephalexin (Keflex) 500 MG capsule Take 1 capsule (500 mg) by mouth 4 times daily for 7 days. 28 capsule 5 025 Active Problems Problem Noted Date Diagnosed Date [...] Description 10/08/2024 9:45 AM EST Office Visit [facility] [address] [place] [id number] Rosa Elliott DO Essential hypertension (Primary Dx); Other hyperlipidemia; Depressive disorder; Hypothyroidism, unspecified type; Chronic migraine; Paresthesia of both lower extremities; Breast pain, left; Healthcare maintenance; Right hip pain; Other insomnia; Postmenopausal 10/08/2024 Travel 09/10/2024 Refill [facility] [address] [place] [address] Rayna Ferrer MD Secondary hypertension 09/09/2024 Refill [facility] [address] [place] [address] Rosa Elliott DO Other insomnia 08/12/2024 Telephone [facility] [address] [place] [address] Rosa Elliott, from Last 3 Months Immunizations Name Administration Dates Next Due DTaP 09/14/2010 Hep A, Adult 07/20/2011,08/31/2010 Hep B, adult 07/20/2011,10/26/2010,08/31/2010 Influenza High-dose Quadriva lent Preservative Free 06/26/2023,04/22/2022,04/30/2021 Influenza, Split (incl. val fied surface antigen) 05/20/2013,04/25/2012 Influenza, trivalent, adjuvanted 04/16/2024 Pfizer Covid-19 Vaccine 12+ 06/07/2024, Pneumococcal Conjugate PCV 13 04/30/2021 Pneumococcal Conjugate [...] years 1-dose series) 2015 Mammogram 11/03/2024 11/04/2023, 12/02/2022, 07/13/2022, Additional history exists Depression Screening 02/20/2025 02/21/2024, 02/21/20 SDOH Screening 05/30/2025 05/30/2024 Tobacco Screening 10/08/2025 [...] Procedure Name Priority Date/Time Associated Diagnosis Comments BD DEXA AXIAL Routine 10/23/2024 9:05 AM EDT Postmenopausal LIPID PANEL, STANDARD Routine 06/05/2024 8:52 AM EDT Essential hypertension BI MAMMOGRAM SCREENING TOMOSYNTHESIS BILATERAL Routine 11/04/2023 9:15 AM EDT from Last 3 Months or Most Recently Relevant to Health Maintenance Results * BD DEXA Axial (10/23/2024 9:05 AM EDT) Anatomical Region Laterality Modality Body Radiographic Charlene ging 10/23/2024 9:05 AM EDT Narrative 10/23/2024 10:04 AM EDT ? [facility] ? [address] ?[place], [place] [address] ? Mammography Report ? Signed ? Patient: LitzyNatalie ?MR#: [id number] ?? 21 ? : 1955 ?Acct:[id number] ? Age/Sex: 69 / F ?ADM Date: 10/23/24 ? Loc: HO.MAMMO ? Attending Dr: Rosa Elliott DO ? Ordering Physician: Rosa Elliott DO ?Results: ? Date of Service: 10/23/24 ?Follow Up: ? Procedure(s): XR DEXA axial skeleton ?? Accession Number(s): [id number] ? cc: Rosa Elliott DO ? EXAMINATION: ??DXA BONE DENSITY AXIAL ? HISTORY: ??Estrogen deficiency ? TECHNIQUE: Advizzer Dual energy absorptiometry (DEXA) ?? of the lumbar spine, total left hip, and femoral neck was performed. ? COMPARISON: Comparison is made with the prior examination dated ?? 11/15/2011. ? FINDINGS: ? The bone mineral density of the lumbar spine is 1.391 with a T-score of ?? 1.8, and a Z-score of 2.7. This is indicative of normal bone mineral ?? density. ? This represents a BMD change of 6.3% compared to the prior exam. ??This ?? is statistically significant. ? The bone mineral density of the left total hip is 0.902 with a T-score ?? of -0.8, and a Z-score of 0.0. This is indicative of normal bone ?? mineral density. ? This represents a BMD change of -0.9% compared to the prior exam. ??This ?? is not statistically significant. ? The bone mineral density of the left femoral neck is 0.838 with a ?? T-score of -1.4, and a Z-score of -0.3. This is indicative of ?? osteopenia. ? This represents a BMD change of -11.3% compared to the prior exam. ? FRACTURE RISK: ?? The FRAX index suggests a ten year probability of major osteoporotic ?? fracture of 5.1%, and of hip fracture 0.7%. ? MM/XR DEXA axial skeleton ?? IMPRESSION: ?? Based on bone mineral density, and according to World Health ?? Organization (WHO) criteria, the diagnosis is consistent with ?? osteopenia. ? All bone density values are in grams per centimeter squared (g/cm2). ?? Statistically, 68% of repeat scans fall within 1 SD (+/- 0.010 g/cm2 ?? for AP spine L1-L4) and 1 SD (+/- 0.012 g/cm2 for femur total) ?? FRAX is a trademark of the [employer]'s ?? [employer] for Metabolic Bone Disease, a World Health Organization (WHO) ?? Collaborating Center. ? Electronically signed by: ??Darren Hong MD ??10/23/2024 10:01 AM EDT ?? RP ? Dictated By: ?Darren Hong MD ? Signed By: ?<Electronically signed by Darren Hong MD in OV> ?10/23/24 1001 ? DD/ 0905 ? TD/TT: 10/23/24 0920 ? Component Assembler Supervisor: ? Procedure Note Donotuseinterpreter, Image - 10/23/2024 [place] [facility] [address] [place] [address] Mammography Report Signed Patient: Natalie Mcghee MMR#: [id number] 21 : 5Acct:[id number] Age/Sex: 69 / FADM Date: 10/23/24 Loc: HO.MAMMO Attending Dr: Rosa Elliott DO Ordering Physician: Rosa Elliottults: Date of Service: 10/23/24Follow Up: Procedure(s): XR DEXA axial skeleton Accession Number(s): [id number] cc: Rosa Elliott DO EXAMINATION: DXA BONE DENSITY AXIAL HISTORY: Estrogen deficiency TECHNIQUE: Advizzer Dual energy absorptiometry (DEXA) of the lumbar spine, total left hip, and femoral neck was performed. COMPARISON: Comparison is made with the prior examination dated 11/15/2011. FINDINGS: The bone mineral density of the lumbar spine is 1.391 with a T-score of 1.8, and a Z-score of 2.7. This is indicative of normal bone mineral density. This represents a BMD change of 6.3% compared to the prior exam. This is statistically significant. The bone mineral density of the left total hip is 0.902 with a T-score of -0.8, and a Z-score of 0.0. This is indicative of normal bone mineral density. This represents a BMD change of -0.9% compared to the prior exam. This is not statistically significant. The bone mineral density of the left femoral neck is 0.838 with a T-score of -1.4, and a Z-score of -0.3. This is indicative of osteopenia. This represents a BMD change of -11.3% compared to the prior exam. FRACTURE RISK: The FRAX index suggests a ten year probability of major osteoporotic fracture of 5.1%, and of hip fracture 0.7%. MM/XR DEXA axial skeleton IMPRESSION: Based on bone mineral density, and according to World Health Organization (WHO) criteria, the diagnosis is consistent with osteopenia. All bone density values are in grams per centimeter squared (g/cm2). Statistically, 68% of repeat scans fall within 1 SD (+/- 0.010 g/cm2 for AP spine L1-L4) and 1 SD (+/- 0.012 g/cm2 for femur total) FRAX is a trademark of the [employer]'s [employer] for Metabolic Bone Disease, a World Health Organization (WHO) Collaborating Center. Electronically signed by: Darren Hong MD 10/23/2024 10:01 AM EDT Dictated By: Darren Hong MD Signed By: <Electronically signed by Darren Hong MD in OV> 10/23/24 1001 DD/ 0905 TD/TT: 10/23/24 0920 Component Assembler Supervisor: Rosa Elliott DO G DXA PROCEDURES Final Res ult * (ABNORMAL) Lipid Panel, Standard (06/05/2024 8:52 AM EDT) Triglycerides 126 <150 mg/dL [facility] Comment:Desirable Triglyceri de: less than 150 mg/dLBorderline High Triglyceride 150-199 mg/dLHigh Triglyceride: 200-499 mg/dLVery High Triglyceride: greater than or equal to 5OO mg/dL Cholesterol 215(H) <200 mg/dL [facility] Comment:Desirable Cholestero l: less than 200 mg/dLBorderline High Cholesterol: 200-239 mg/dLHigh Cholesterol: greater than 239 mg/dL LDL Cholesterol Calculated 138(H) <100 mg/dL [facility] Comment:Desirable LDL: less than 100 mg/dLNear Optimal/Above Optimal LDL: 110- 129 mg/dLBorderline High LDL: 130-159 mg/dLHigh LDL: 160-189 mg/dLVery High LDL: greater than or equal to 190 mg/dL HDL Cholesterol 52 >40 mg/dL [facility] Comment:Desirable HDL: great er than 40 mg/dL Note: This HDL assay may give artificially low results in patients with liver disease. Blood Venous blood specimen / Unknown 06/05/2024 8:52 AM EDT 06/05/2024 11:23 AM EDT Rosa Elliott DO LAB BLOOD ORDERABLES Final R esult [facility] [address] [place] [address] [phone] * BI Mammogram Screening Tomosynthesis Bilateral (11/04/2023 9:15 AM EDT) Anatomical Region Laterality Modality Breast Bilateral Mammography 11/04/2023 9:15 AM EDT Narrative 11/15/2023 12:00 AM EDT ? [facility] ? [address] ?[place] [address] ? Mammography Report ? Signed ? Patient: Litzy,Natalie M ?MR#: [id number] ?? 21 ? : 1955 ?Acct:[id number] ? Age/Sex: 68 / F ?ADM Date: 03/30/24 ? Loc: HO.MAMMO ? Attending Oc Elliott DO ? Ordering Physician: Rosa Elliott DO ?Results: 2B ?? enign Findings ? Date of Service: 11/04/23 ?Follow Up: 1 Year From Orig ?? inal Mammogram ? Procedure(s): MM tomosynthesis screening BI ?? Accession Number(s): [id number] ? cc: Rosa Elliott DO ? EXAMINATION: [...] 11/14/236 ? DD/ 4 ? TD/TT: ? Component Assembler Supervisor: ? Procedure Note Donotuseinterpreter, Image - 11/15/2023 [place] [facility] [address] [place] [address] Mammography Report Signed Patient: Natalie Mcghee MMR#: [id number] 21 : 5Acct:[id number] Age/Sex: 68 / FADM Date: 11/04/23 Loc: HO.MAMMO Attending Dr: Rosa Elliott DO Ordering Physician: Rosa Elliottults: 2B enign Findings Date of Service: 11/04/23Follow Up: 1 Year From Orig inal Mammogram Procedure(s): MM tomosynthesis screening BI Accession Number(s): [id number] cc: Rosa Elliott DO EXAMINATION: MM SCREENING [...] by Vika Mendoza MD in OV> 11/14/23 9696 DD/ 0915 TD/TT: Component Assembler Supervisor: Rosa Elliott DO IMG BI PROCEDURES Final Resu lt from Last 3 Months or Most Recently Relevant to Health Maintenance Insurance [facility] MEDICARE ADVANTAGE HMO Care Teams Director Of Analytical Development Relationship Specialty Start Date End Date Rosa Elliott DO [address] [place] [phone] PCP - General Family Medicine 02/21/14
--- OUTSIDE RECORDS SUMMARY | 2024-11-08 10:40 | XMS_ITS | Encounter Summary ---
Author Organization [employer] Address [address] [facility] [address] [place] [address] Care Team Providers Care Designer Writer Name Role Phone Rosa Elliott DO Primary Care Provider + [phone] Reason for Visit * Reason Comments Med Refill Encounter Details Date Type Department Care Team ([facility] st Contact Info) Description 06/03/2023 Refill [facility] [address] [place], [place] [phone] Rosa Elliott DO [address] [place] [address] Secondary hypertension Social History Tobacco Use Types [...] documented as of this encounter Care Teams Designer Writer Relationship Specialty Start Date End Date Rosa Elliott DO [address] [place] [address] PCP - General Family Medicine 02/21/14 documented as of this encounter
--- OUTSIDE RECORDS SUMMARY | 2024-11-08 10:40 | XMS_ITS | Encounter Summary ---
Author Organization [employer] Address [address] [facility] [address] [place] [address] Care Team Providers Care Sole Tacker Name Role Phone EarlRosa Primary Care Provider + [phone] Reason for Visit * Reason Comments Med Refill Encounter Details Date Type Department Care Team ([facility] st Contact Info) Description 09/10/2024 Refill [facility] [address] [place], [place] [phone] Rayna Ferrer MD [address] [place] [address] Secondary hypertension Social History Tobacco Use Types [...] documented as of this encounter Care Teams Sole Tacker Relationship Specialty Start Date End Date Rosa Elliott DO [address] [place] [phone] PCP - General Family Medicine 02/21/14 documented as of this encounter
--- OUTSIDE RECORDS SUMMARY | 2024-11-08 10:40 | XMS_ITS | Encounter Summary ---
Author Organization [facility] Address [address] [place] [address] Care Team Providers Care Extension Service Specialist In Charge Name Role Phone Physician, Pcp Unknown Primary Care Provider Mariela vailable Reason for Visit * Reason Comments Nausea Fever Vomiting Started yesterday - c/o epigastric abd pain Encounter Details Date Type Department Care Team (Late st Contact Info) Description 11/02/2024 2:31 PM EDT - 11/02/2024 9:39 PM EDT Emergency [facility] Emergency [address] [place] [id number] Claudy Escobar MD [address] [place] [address] Nonintractable headache, unspecified chronicity pattern, unspecified headache type (Primary Dx) Discharge Disposition: Home or Self Care Social History Tobacco Use Types Packs/Day Years Used Date Smoking Tobacco: Never Smokeless Tobacco: Never Comments Unknown Sex and Gender Information Value Date Recorded Sex Assigned at Female 11/02/2024 4:59 PM EDT Legal Sex Female 4:32 PM EST Gender Identity Female 11/02/2024 4:59 PM EDT Sexual Orientation Straight 11/02/2024 4: 59 PM EDT documented as of this encounter Last [...] Mass Index 33.66 11/02/2024 1:22 PM EDT documented in this encounter Discharge Instructions * Discharge Instructions* Claudy Escobar MD - 11/02/2024 7:45 PM EDT You were seen in the hospital for your headache and nausea and vomiting. We did CAT scans and lab work. The CAT scan of your head did not show anything acute pathology. Your lab work was unremarkableas well. You had improvement symptoms in the ER therefore we discharge. We advise that you follow-up with your primary care doctor. Please return if your symptoms worsen. * Attachments The following attachments cannot be sent through Care Everywhere. 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 * Claudy Escobar MD - 11/02/2024 12:51 PM EDT Emergency Medicine Note Patient Name: Natalie Mcghee Initial Evaluation: 11/02/2024 : 1955 Patient's PCP: Aisha Anne MD Emergency Physician: Claudy Escobar MD History of Present Illness Chief Complaint: Chief Complaint Patient presents with Nausea Fever Vomiting Started yesterday - c/o epigastric abd pain HPI: 69-year-old female withpast medical history of hypertension, now presents with a chief complaint ofheadache since night. Patient reports that the headache is localized to the frontal aspect, associate with nausea and vomiting, 2-3 times a day. She does have a history of migraines. She reports that the vomiting was nonbloody. She also reports associated fevers and chills. She denies any complaints of chest pain, shortness of breath, abdominal pain, dizziness, diarrhea, dysuria, hematuria, cough or congestion. 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 ROS: I have performed a ROS with the pertinent positives and negatives documented in the history ofpresent illness. Review of Systems Constitutional: Negative. HENT: Negative. Respiratory: Negative. Cardiovascular: Negative. Gastrointestinal: Positive for nausea and vomiting. Neurological: Positive for headaches. Previous History No past medical history on file. No past surgical history on file. Social History Tobacco Use Smoking status: Never Smokeless tobacco: Never Family History Problem Relation Name Age of Onset No Known Problems Father No Known Problems Mother No Known Problems Brother No Known Problems Sister No Known Problems Maternal Grandfather No Known Problems Maternal Grandmother No Known Problems Paternal Grandfather No Known Problems Paternal Grandmother No Known Problems Aunt No Known Problems Uncle No Known Problems Other Blindness Neg Hx Cataracts Neg Hx Glaucoma Neg Hx Macular degeneration Neg Hx Strabismus Neg Hx is allergic to morphine. No current facility-administered medications on file prior to encounter. No current outpatient medications on file prior to encounter. Physical Exam ED Triage Vitals [11/02/24 1322] Temp Heart Rate Resp BP 37.2 ??C (99 ??F) 87 18 (!) 160/99 SpO2 Temp Source Heart Rate Source Patient Position 96 % Oral -- Sitting BP Location FiO2 (%) Right arm -- Physical Exam Constitutional: Appearance: Normal appearance. HENT: Head: Normocephalic and atraumatic. Mouth/Throat: Mouth: Mucous membranes are moist. Eyes: Extraocular Movements: Extraocular movements intact. Conjunctiva/sclera: Conjunctivae normal. Neck: Comments: No meningismus. Cardiovascular: Rate and Rhythm: Normal rate and regular rhythm. Pulmonary: Effort: No respiratory distress. Breath sounds: Normal breath sounds. Abdominal: General: There is no distension. Palpations: Abdomen is soft. Tenderness: There is no abdominal tenderness. Musculoskeletal: General: No deformity. Normal range of motion. Cervical back: Normal range of motion and neck supple. Skin: General: Skin is warm. Capillary Refill: Capillary refill takes less than 2 seconds. Neurological: General: No focal deficit present. Mental Status: She is alert and oriented to person, place, and time. Mental status is at baseline. Cranial Nerves: No cranial nerve deficit. Sensory: No sensory deficit. Motor: No weakness. Coordination: Coordination normal. Gait: Gait normal. Psychiatric: Mood and Affect: Mood normal. Results Labs Reviewed CBC WITH AUTO DIFFERENTIAL - Abnormal Result Value WBC 4.3 (*) RBC 5.30 (*) Hemoglobin 15.2 Hematocrit 48.0 (*) MCV 90.2 MCH 28.6 MCHC 31.7 (*) RDW 13.9 Platelets 114 (*) MPV 10.7 NRBC 0.0 NRBC Absolute 0.00 Neutrophils Relative 61.6 Lymphocytes Relative 16.6 Monocytes Relative 21.4 Eosinophils Relative 0.0 Basophils Relative 0.2 Immature Granulocytes Relative 0.2 Neutrophils Absolute 2.67 Lymphocytes Absolute 0.72 (*) Monocytes Absolute 0.93 Eosinophils Absolute 0.00 Basophils Absolute 0.01 Immature Granulocytes Absolute 0.01 [id number], RSV, FLU A AND B QUALITATIVE RT-PCR, INTERNAL LAB - Normal Influenza A PCR Not Detected Influenza B PCR Not Detected RSV PCR Not Detected SARS COV-2 Not Detected Narrative: Disclaimer: Testing was performed using the [employer] GeneXpert Xpress SARS-CoV-2 _Flu_RSV PLUS PCR assay. The manner in which this information is used to guide patient care is the responsibility of the healthcare provider. Results should be correlated with the clinical history, epidemiological data,and other data available to the clinician evaluating the patient. Negative results do not preclude infection. This test has been authorized by the FDA under an Emergency Use Authorization (EUA). Thistest is only authorized for the duration of time the declaration that circumstances exist justifying the authorization of the emergency use of in vitro diagnostic tests for detection of SARS-CoV-2 virus and/or diagnosis of COVID-19 infection under section 564 (b) (1) of the Act, 21 U.S.C 360bbb-3 (b) (1), unless the authorization is terminated or revoked sooner. Reference Range: Not Detected Fact sheet for Healthcare providers can be found at https://www.fda.gov/media/432515/download. Fact sheet for Healthcare patients can be found at https://www.fda.gov/media/361616/download. COMPREHENSIVE METABOLIC PANEL - Normal Sodium 136 Potassium 4.3 Chloride 104 CO2 26 Anion Gap 6 Glucose 97 BUN 17 Creatinine 0.85 eGFR 74 BUN/Creatinine Ratio 20.0 Calcium 9.0 AST (SGOT) 22 ALT (SGPT) 24 Alkaline Phosphatase 69 Total Protein 7.5 Albumin 4.0 Total Bilirubin 0.7 LIPASE - Normal Lipase 27 CBC AND DIFFERENTIAL Narrative: The following orders were created for panel order CBC and differential. Procedure Abnormality Status --------- ------ CBC auto differential[[id number]] Abnormal Final result Please view results for these tests on the individual orders. Abnormal Labs Reviewed CBC WITH AUTO DIFFERENTIAL - Abnormal; Notable for the following components: Result Value WBC 4.3 (*) RBC 5.30 (*) Hematocrit 48.0 (*) MCHC 31.7 (*) Platelets 114 (*) Lymphocytes Absolute 0.72 (*) All other components within normal limits No orders to display I have discussed the incidental/abnormal imaging and/or lab abnormalities with the patient and haveinstructed them the need for further evaluation and workup with their primary care doctor. I have provided the patient with a paper copy of the abnormality. The laboratory results, imaging results and other diagnostic exam results were reviewed in the EMR. EKG Interpretation No results found for this or any previous visit (from the past 4464 hours). Critical Care Time None ? Medical Decision Making Medical Decision Making 69-year-old female presents with a chief complaint of nausea, vomiting and headache. Patient does have a history of underlying migraines. Will symptomatically treat, and reassess. 7:46 PM Patient is feeling much improved after medications in the ER. Patient's CAT scan of the head is unremarkable. Labs unremarkable. Will send off a viral panel. Patient was advised to follow with primary care doctor. Patient was given strict return precautions. She was eager for discharge. Patient understood and agreed with plan. This patient presents with a headache most consistent with benign headache from either tension typeheadache vs migraine. No headache red flags. Neurologic exam without evidence of meningismus, AMS, focal neurologic findings so doubt meningitis, encephalitis, stroke. Presentation not consistent with acute intracranial bleed to include SAH (lack of risk factors, headache history). No history of trauma so doubt ICH. Given history and physical temporal arteritis unlikely, as is acute angle closureglaucoma. Doubt carotid artery dissection given no focal neuro deficits, no neck trauma or recent neck strain. Patient with no signs of increased intracranial pressure or weight loss and history and physical suggest more benign headache so less likely mass effect in brain from tumor or abscess or idiopathic intracranial hypertension. Pain was controlled with headache cocktail and patient discharged home with PMD follow up. Medications - No data to display Clinical Impressions as of 11/02/241945 Nonintractable headache, unspecified chronicity pattern, unspecified headache type Procedures @PROCEDURENOTES@ Procedures Diagnosis No diagnosis found. Disposition Data Unavailable ED Prescriptions None Physician Attestation Claudy Escobar MD 11/02/24 1630 Claudy Escobar MD 11/02/24 1942 Claudy Escobar MD 11/02/24 1947 Claudy Escobar MD 11/04/24 1634 documented in this encounter Plan of Treatment Not on file documented as of this encounter Procedures Procedure Name Priority Date/Time Associated Diagnosis Comments RESPIRATORY VIRUS PANEL MOLECULAR STUDY STAT 11/02/2024 7:[address] HEAD WO CONTRAST STAT 11/02/2024 5 :52 PM EDT [id number], RSV, FLU A AND B QUALITATIVE RT-PCR, INTERNAL LAB STAT 11/02/2024 3:06 PM EDT CBC WITH AUTO DIFFERENTIAL STAT 11/02/2024 3:05 PM EDT CBC AND DIFFERENTIAL STAT 11/02/2024 3:05 PM EDT LIPASE STAT 11/02/2024 3:05 PM EDT COMPREHENSIVE METABOLIC PANEL STAT 11/02/2024 3:05 PM EDT documented in this encounter Results * Respiratory virus panel molecular study (11/02/2024 7:54 PM EDT) Adenovirus Detection by PCR Not Detected Not Detected LAB MICROBIOLOGY METHOD 11/02/2024 9:11 PM EDT [facility] Influenza A PCR Not Detected Not Detected LAB MICROBIOLOGY METHOD 11/02/2024 9:11 PM EDT [facility] Influenza B PCR Not Detected Not Detected LAB MICROBIOLOGY METHOD 11/02/2024 9:11 PM EDT [facility] Coronavirus 229E Not Detected Not Detected LAB MICROBIOLOGY METHOD 11/02/2024 9:11 PM EDT [facility] Coronavirus HKU1 Not Detected Not Detected LAB MICROBIOLOGY METHOD 11/02/2024 9:11 PM EDT [facility] Coronavirus OC43 Not Detected Not Detected LAB MICROBIOLOGY METHOD 11/02/2024 9:11 PM EDT [facility] Coronavirus NL63 Not Detected Not Detected LAB MICROBIOLOGY METHOD 11/02/2024 9:11 PM EDT [facility] Parainfluenza Virus 1 Not Detected Not Detected LAB MICROBIOLOGY METHOD 11/02/2024 9:11 PM EDT [facility] Parainfluenza Virus 2 Not Detected Not Detected LAB MICROBIOLOGY METHOD 11/02/2024 9:11 PM EDT [facility] Parainfluenza Virus 3 Not Detected Not Detected LAB MICROBIOLOGY METHOD 11/02/2024 9:11 PM EDT [facility] Parainfluenza Virus 4 Not Detected Not Detected LAB MICROBIOLOGY METHOD 11/02/2024 9:11 PM EDT [facility] RSV PCR Not Detected Not Detected LAB MICROBIOLOGY METHOD 11/02/2024 9:11 PM EDT [facility] Human Metapneumovirus A and B Not Detected Not Detected LAB MICROBIOLOGY METHOD 11/02/2024 9:11 PM EDT [facility] Rhinovirus/Entero virus Not Detected Not Detected LAB MICROBIOLOGY METHOD 11/02/2024 9:11 PM EDT [facility] Bordetella pertussis Not Detected Not Detected LAB MICROBIOLOGY METHOD 11/02/2024 9:11 PM EDT [facility] Bordetella parapertussis Not Detected Not Detected LAB MICROBIOLOGY METHOD 11/02/2024 9:11 PM EDT [facility] Mycoplasma pneumo by PCR Not Detected Not Detected LAB MICROBIOLOGY METHOD 11/02/2024 9:11 PM EDT [facility] Chlamydia pneumoniae Not Detected Not Detected LAB MICROBIOLOGY METHOD 11/02/2024 9:11 PM EDT [facility] SARS COV-2 Not Detected Not Detected LAB MICROBIOLOGY METHOD 11/02/2024 9:11 PM EDT [facility] Swab Both anterior nares / Unknown Non-blood Collection / Unknown 11/02/2024 7:54 PM EDT 11/02/2024 8:15 PM EDT [facility] - 11/02/2024 9:11 PM EDT Testing was performed using the [employer] e-Media Respiratory Pathogen PCR Assay. All results must [...] detection. Claudy Escobar MD LAB MICROBIOLOGY - GENERAL ORDE [facility] Final Result [facility] [address] [place] [address], [place] [phone] * CT Head wo Contrast (11/02/2024 5:52 [...] by: Polo Valle MD on 11/02/2024 18:13:32 [facility] Shawn ARANGO IM CT PROCEDURES Final Result * [id number], RSV, Influenza A and B qualitative RT-PCR (11/02/2024 3:06 PM EDT) Influenza A PCR Not Detected Not Detected LAB MICROBIOLOGY METHOD 11/02/2024 3:57 PM EDT [facility] Influenza B PCR Not Detected Not Detected LAB MICROBIOLOGY METHOD 11/02/2024 3:57 PM EDT [facility] RSV PCR Not Detected Not Detected LAB MICROBIOLOGY METHOD 11/02/2024 3:57 PM EDT [facility] SARS COV-2 Not Detected Not Detected LAB MICROBIOLOGY METHOD 11/02/2024 3:57 PM EDT [facility] Swab Both anterior nares / Unknown Non-blood Collection / Unknown 11/02/2024 3:06 PM EDT 11/02/2024 3:16 PM EDT Narrative [facility] - 11/02/2024 3:57 PM EDT Disclaimer: ??Testing was performed using the [employer] GeneXpert Xpress SARS-CoV-2 _Flu_RSV PLUS PCR assay. [...] for Healthcare providers can be found at https://www.fda.gov/media/464126/download. ?? Fact sheet for Healthcare patients can be found at https://www.fda.gov/media/596083/download. Claudy Escobar MD LAB MICROBIOLOGY - GENERAL REMI GHOSH Final Result [facility] [address] [place] [address], * (ABNORMAL) CBC auto differential (11/02/2024 3:05 PM EDT) WBC 4.3(L) 4.8 - 10.8 K/mcL LAB HEMETOLOGY METHOD 11/02/2024 3:48 PM EDT [facility] RBC 5.30(H) 3.80 - 4.80 M/mcL LAB HEMETOLOGY METHOD 11/02/2024 3:48 PM EDT [facility] Hemoglobin 15.2 11.5 - 16.0 g/dL LAB HEMETOLOGY METHOD 11/02[facility] Hematocrit 48.0(H) 35.0 - 47.0 % LAB HEMETOLOGY METHOD 11[facility]02/2024 3:[facility] MCV 90.2 79.0 - 98.0 FL LAB HEMETOLOGY METHOD 11/02/2024 3:[address] [facility] MCH 28.6 27.0 - 32.0 pcg LAB HEMETOLOGY METHOD 11/02/2024 3:[address] [facility] MCHC 31.7(L) 32.0 - 37.0 g/dL LAB HEMETOLOGY METHOD 11/02/2024 3:[address] [facility] RDW 13.9 11.0 - 15.0 % LAB HEMETOLOGY METHOD 11/02/2024 3:[address] [facility] Platelets 114(L) 130 - 400 K/mcL LAB HEMETOLOGY METHOD 11/02/2024 3:48 [facility] MPV 10.7 7.0 - 11.0 FL LAB HEMETOLOGY METHOD 11/02/2024 3:48 [facility] NRBC 0.0 <1.0 % LAB HEMETOLOGY METHOD 11/02/2024 3:48 [facility] NRBC Absolute 0.00 <0.10 K/mcL LAB HEMETOLOGY METHOD 11/02/2024 3:48 [facility] Neutrophils Relative 61.6 % LAB HEMETOLOGY METHOD 11/02/2024 3:48 PM EDT [facility] Lymphocytes Relative 16.6 % LAB HEMETOLOGY METHOD 11/02/2024 3:48 PM EDT [facility] Monocytes Relative 21.4 % LAB HEMETOLOGY METHOD 11/02/2024 3:48 PM EDT [facility] Eosinophils Relative 0.0 % LAB HEMETOLOGY METHOD 11/02/2024 3:48 PM EDT [facility] Basophils Relative 0.2 % LAB HEMETOLOGY METHOD 11/02/2024 3:48 PM EDT [facility] Immature Granulocytes Relative 0.2 % LAB HEMETOLOGY METHOD 11/02/2024 3:48 PM EDT [facility] Neutrophils Absolute 2.67 1.50 - 7.00 K/mcL LAB HEMETOLOGY METHOD 11/02/2024 3:48 [facility] Lymphocytes Absolute 0.72(L) 1.00 - 5.00 K/mcL LAB HEMETOLOGY METHOD 11/02/2024 3:48 PM EDT [facility] Monocytes Absolute 0.93 0.20 - 1.00 K/mcL LAB HEMETOLOGY METHOD 11/02/2024 3:[address] [facility] Eosinophils Absolute 0.00 0.00 - 0.50 K/mcL LAB HEMETOLOGY METHOD 11/02/2024 3:48 PM EDT [facility] Basophils Absolute 0.01 0.00 - 0.20 K/mcL LAB HEMETOLOGY METHOD 11/02/2024 3:48 PM T [facility] Immature Granulocytes Absolute 0.01 0.00 - 0.03 K/mcL LAB HEMETOLOGY METHOD 11/02/2024 3:[address] [facility] Blood Venous blood specimen / Unknown Venipuncture / Unknown 11/02/2024 3:05 PM EDT 11/02/2024 3:16 PM EDT Claudy Escobar MD LAB BLOOD ORDERABLES Final Resu lt Performing Organization Address City/[facility]/ZIP Co de Phone Number [facility] [address] [place] [address], [place] [phone] * Lipase (11/02/2024 3:05 PM EDT) Pathologist [facility] Lipase 27 13 - 75 unit/L LAB CHEMISTRY METHOD 11/02/2024 3:52 PM EDT [facility] Blood Venous blood specimen / Unknown Venipuncture / Unknown 11/02/2024 3:05 PM EDT 11/02/2024 3:16 PM EDT Claudy Escobar MD LAB BLOOD ORDERABLES Final Resu lt Performing Organization Address [facility]/ZIP Co de Phone Number [facility] [address] [place] [address], [place] [phone] * Comprehensive metabolic panel (11/02/2024 3:05 PM EDT) [facility] Sodium 136 133 - 145 mmol/L LAB CHEMISTRY METHOD 11/02/2024 3:52 PM EDT [facility] Potassium 4.3 3.5 - 5.5 mmol/L LAB CHEMISTRY METHOD 11/02/2024 3:52 PM EDT [facility] Chloride 104 96 - 110 mmol/L LAB CHEMISTRY METHOD 11/02/2024 3:52 PM EDT [facility] CO2 26 21 - 32 mmol/L LAB CHEMISTRY METHOD 11/02/2024 3:52 PM EDT [facility] Anion Gap 6 3 - 11 LAB CHEMISTRY METHOD 11/02/2024 3:52 PM EDT [facility] Glucose 97 70 - 100 mg/dL LAB CHEMISTRY METHOD 11/02/2024 3:52 PM EDT [facility] BUN 17 5 - 25 mg/dL LAB CHEMISTRY METHOD 11/02/2024 3:[address] [facility] Creatinine 0.85 0.50 - 1.10 mg/dL LAB CHEMISTRY METHOD 11/02/2024 3:[address] [facility] eGFR 74 >=60 mL/min/1. 73m2 LAB CHEMISTRY METHOD 11/02/2024 3:[address] [facility] Comment:Calculation based on the??Chronic Kidney Disease Epidemiology Collaboration (CKD-EPI) equation refit??without adjustment for race. BUN/Creatinine Ratio 20.0 LAB CHEMISTRY METHOD 11/02/2024 3:[address] [facility] Calcium 9.0 8.5 - 10.5 mg/dL LAB CHEMISTRY METHOD 11/02/2024 3:[address] [facility] AST (SGOT) 22 10 - 42 unit/L LAB CHEMISTRY METHOD 11/02/2024 3:[address] [facility] ALT (SGPT) 24 10 - 60 unit/L LAB CHEMISTRY METHOD 11/02/2024 3:[address] [facility] Alkaline Phosphatase 69 42 - 121 unit/L LAB CHEMISTRY METHOD 11/02/2024 3:[address] [facility] Total Protein 7.5 6.0 - 8.0 g/dL LAB CHEMISTRY METHOD 11/02/2024 3:[address] [facility] Albumin 4.0 3.2 - 5.0 g/dL LAB CHEMISTRY METHOD 11/02/2024 3:[address] [facility] Total Bilirubin 0.7 0.0 - 1.4 mg/dL LAB CHEMISTRY METHOD 11/02/2024 3:[address] [facility] Blood Venous blood specimen / Unknown Venipuncture / Unknown 11/02/2024 3:05 PM EDT 11/02/2024 3:16 PM EDT Claudy Escobar MD LAB BLOOD ORDERABLES Final Resu lt [place] ([facility]) [facility] [address] [place] [address], documented in this encounter Visit Diagnoses Diagnosis Nonintractable headache, unspecified chronicity pattern, unspecified headache type- Primary documented in this encounter Administered Medications Inactive Administered Medications - up to 3 most recent administrations Medication Order MAR Action Action Date Dose Rate Site acetaminophen (TYLENOL) tablet 650 mg 650 mg, oral, Once, On 11/02/24 at 1733, For 1 dose Given 11/02/2024 6:48 PM EDT 650 mg efopumsgzr-twdxujhcvjpas-jg ffeine (FIORICET, ESGIC) 50-325-40 mg per tablet 1 tablet 1 tablet, oral, Every 4 hours PRN, headaches, Starting on 11/02/24 at 1731 diphenhydrAMINE (BENADRYL) injection 25 mg 25 mg, intravenous, Once, On 11/02/24 at 1733, For 1 dose Given 11/02/2024 6:35 PM EDT 25 mg ketorolac (TORADOL) injection 15 mg 15 mg, intravenous, Once, On 11/02/24 at 1945, For 1 dose Given 11/02/2024 8:21 PM EDT 15 mg metoclopramide (REGLAN) injection 10 mg 10 mg, intravenous, Once, On 11/02/24 at 1733, For 1 dose, Doses LESS than or equal to 10 mg can be given IV push undiluted over 1 minute Given 11/02/2024 6:43 PM EDT 10 mg sodium chloride 0.9 % bolus 1,000 mL 1,000 mL, intravenous, at 2,000 mL/hr, Administer over 30 Minutes, Once, On 11/02/24 at 1733, For 1 dose New Bag 11/02/2024 6:33 PM EDT 1,000 mL 2000 mL/hr documented in this encounter Active and Recently Administered Medications Times are shown in EDT. Scheduled Medication Order 10/31/2024 11/01/2024 11/02/2024 acetaminophen (TYLENOL) tablet 650 mg (COMPLETED) 650 mg, oral, Once, On 11/02/24 at 1733, For 1 dose 184 (Given - Provid er: Sydney Clay RN) diphenhydrAMINE (BENADRYL) injection 25 mg (COMPLETED) 25 mg, intravenous, Once, On 11/02/24 at 1733, For 1 dose 1834 (Given - Provid er: Sydney Clay RN - Comment: Pt at imaging) ketorolac (TORADOL) injection 15 mg (COMPLETED) 15 mg, intravenous, Once, On 11/02/24 at 1945, For 1 dose 2020 (Given - Provid er: Mitesh Jimenez RN) metoclopramide (REGLAN) injection 10 mg (COMPLETED) 10 mg, intravenous, Once, On 11/02/24 at 1733, For 1 dose, Doses LESS than or equal to 10 mg can be given IV push undiluted over 1 minute 1842 (Given - Provid er: Sydney Clay RN - Comment: Pt in imaging) sodium chloride 0.9 % bolus 1,000 mL (COMPLETED) 1,000 mL, intravenous, at 2,000 mL/hr, Administer over 30 Minutes, Once, On 11/02/24 at 1733, For 1 dose 1832 (New Bag - Prov ider: Sydney Clay RN)[id number] (Stopped - Provider: Mitesh Jimenez RN) PRN Medication Order 10/31/2024 11/01/2024 11/02/2024 ehltyajbhf-rhcilrthhbqxv-bfqfymoa (FIORICET, ESGIC) 50-325-40 mg per tablet 1 tablet 1 tablet, oral, Every 4 hours PRN, headaches, Starting on 11/02/24 at 1731 documented in this encounter Orders Medications Ordered That Rustam ht Not Have Been Administered Count Last Ordered Date First Ordered Date vghevwpbyp-ufxnicwcwxqie-seq feine (FIORICET, ESGIC) 50-325-40 mg per tablet 1 tablet 1 11/02/2024 documented in this encounter Additional Health Concerns Infection Onset Date Last Indicated Resolved Time Respiratory Rule-Out 11/02/2024 11/02/2024 025 3:57 PM EDT COVID-19 Rule-Out 11/02/2024 11/02/2024 11/02/2024 3:57 PM EDT Respiratory Rule-Out 11/02/2024 11/02/2024 025 9:11 PM EDT COVID-19 Rule-Out 11/02/2024 11/02/2024 11/02/2024 9:11 PM EDT documented as of this encounter Care Teams Extension Service Specialist In Charge Relationship Specialty Start Date End Date Physician, Pcp Unknown PCP - General 11/02/24 documented as of this encounter
--- OUTSIDE RECORDS SUMMARY | 2024-11-08 10:40 | XMS_ITS | Encounter Summary ---
Author Organization [employer] [facility] Address [address] [facility] 7t [place] [address] Care Team Providers Care Ems Helicopter Pilot Name Role Phone Rosa Elliott DO Primary Care Provider [phone] Reason for Visit * Reason Comments Med Refill Encounter Details Date Type Department Care Team ([facility] st Contact Info) Description 03/17/[address] [facility] [address] [place], [place] [phone] Rosa Elliott DO [address] [place] [address] Other insomnia Social History Tobacco Use Types [...] documented as of this encounter Care Teams Ems Helicopter Pilot Relationship Specialty Start Date End Date Rosa Elliott DO [address] [place] [address] PCP - General Family Medicine 02/21/14 documented as of this encounter
--- OUTSIDE RECORDS SUMMARY | 2024-11-08 10:40 | XMS_ITS | Encounter Summary ---
Author Organization [email or web address] Address [address] [facility] 7t [place] [address] Care Team Providers Care Behavior Analyst Name Role Phone Rosa Elliott DO Primary Care Provider [phone] Reason for Visit * Reason Onset Date Comments Reschedule 06/27/2024 Encounter Details Date Type Department Care Team ([facility] st Contact Info) Description 06/27/2024 Telephone [facility] MED[facility]INE [address] [place], [place] [phone] Rosa Elliott DO [address] [place], [place] [phone] Reschedule Social History Tobacco Use Types Packs/Day [...] for 06/28. Contact pt to r/s at [phone] documented in this encounter Plan of Treatment Not on file documented as of this encounter Visit Diagnoses Not on filedocumented in this encounter Additional Health Concerns Assessment Noted Time PHQ-9 Depression Total Score: 3 02/21/20 24 10:33 AM EDT documented as of this encounter Care Teams Behavior Analyst Relationship Specialty Start Date End Date Rosa Elliott DO [address] [place] [id number] PCP - General Family Medicine 02/21/14 documented as of this encounter
--- OUTSIDE RECORDS SUMMARY | 2024-11-08 10:40 | XMS_ITS | Encounter Summary ---
Author Organization [employer] [facility] Address [address] [place] [address] 7t [place] [address] Care Team Providers Care Air Value Tester Name Role Phone Rosa Elliott DO Primary Care Provider + [phone] Encounter Details Date Type Department Care Team (Late st Contact Info) Description 07/26/2022 Abstract [facility] [address] [place] [address] Provider, Jonathan, Social History Tobacco Use Types [...] on filedocumented in this encounter Care Teams Air Value Tester Relationship Specialty Start Date End Date Rosa Elliott DO [address] [place] [address] PCP - General Family Medicine 02/21/14 documented as of this encounter
== END 2024-11-08 09:39 | disposition home or self-care (01) ==
LOC: HO.MAMMO 09:38
PROVIDERS: PCP Family Medicine; Visit Provider Family Medicine
DX: N64.4 Mastodynia (principal)
CPT/HCPCS: 76642; 77062; 77066

== ENCOUNTER 2025-06-10 09:37 | Outpatient (REF) | payer MEDICARE, SELFPAY ==
--- OUTSIDE RECORDS SUMMARY | 2025-06-10 09:00 | XMS_ITS | Encounter Summary ---
Author Organization [employer] Address [address] [facility] 7 [place] [address] Care Team Providers Care Scheduling Administrator Name Role Phone Rosa Elliott DO Primary Care Provider + [phone] Encounter Details Date Type Department Care Team (Late st Contact Info) Description 06/10/2025 9:00 AM EST Office Visit [facility] [address] [place], [place] [phone] Rosa Elliott DO [address] [place], [place] [phone] Essential hypertension (Primary Dx); Other hyperlipidemia; Depressive disorder; Hypothyroidism, unspecified type; Chronic migraine; Paresthesia of both lower extremities; Breast pain, left; Healthcare maintenance; Dietary counseling; Exercise counseling Social History Tobacco Use Types Packs/Day Years Used Date Smoking Tobacco: Never Passive Smoke Exposure: Never Smokeless Tobacco: Never Alcohol Use Standard Drinks/Week Comments Never 0 (1 standard drink = 0.6 oz pur e alcohol) Depression Answer Date Recorded Patient Health Questionnaire-9 Score 0 02/25/2025 Patient Health Questionnaire-9 Score 0 02/25/2025 Last PHQ-9: Questionnaire Data Not on file 0 02/25/2025 Housing Stability Answer Date Recorded What is [...] Date Recorded Patient Health Questionnaire-2 Score 0 02/25/2025 Internet Access Answer Date Recorded Internet Access [...] Sign Reading Time Taken Comments Blood Pressure 124/78 06/10/2025 9:06 AM EST Pulse 79 06/10/2025 9:06 AM EST Temperature 36.6 C (97.9 F) 06/10/2025 9:06 AM EST Respiratory Rate 20 06/10/2025 9:06 AM EST Oxygen Saturation 97% 06/10/2025 9:06 AM EST Inhaled Oxygen Concentration - - Weight 93.2 kg (205 lb 8 oz) 06/10/2025 9:06 AM EST Height 160 cm (5' 3 ) 06/10/2025 9:06 AM EST Body Mass Index 36.4 06/10/2025 9:06 AM EST documented in this encounter Plan of Treatment Upcoming Encounters Date Type Department Care Team (Late st Contact Info) Description 09/11/2025 1:00 PM EST Office Visit [facility] OPTOMETRY [address] [place] [address] Elodia Flores, OD [address] [place] [address] Scheduled Orders Name Type Priority Associated Diagnoses Orde r Schedule T4, Free Lab Routine Essential hypertension Other hyperlipidemia Depressive disorder Hypothyroidism, unspecified type Chronic migraine Paresthesia of both lower extremities Breast pain, left Healthcare maintenance Dietary counseling Exercise counseling Expected: 06/10/2025 (Approximate), Expires: 06/10/2026 Vitamin D, 25-Hydroxy, Total, Immunoassay Lab Routine Essential hypertension Other hyperlipidemia Depressive disorder Hypothyroidism, unspecified type Chronic migraine Paresthesia of both lower extremities Breast pain, left Healthcare maintenance Dietary counseling Exercise counseling Expected: 06/10/2025 (Approximate), Expires: 06/10/2026 Lipid Panel, Standard Lab Routine Essential hypertension Other hyperlipidemia Depressive disorder Hypothyroidism, unspecified type Chronic migraine Paresthesia of both lower extremities Breast pain, left Healthcare maintenance Dietary counseling Exercise counseling Expected: 06/10/2025 (Approximate), Expires: 06/10/2026 TSH Lab Routine Essential hypertension Other hyperlipidemia Depressive disorder Hypothyroidism, unspecified type Chronic migraine Paresthesia of both lower extremities Breast pain, left Healthcare maintenance Dietary counseling Exercise counseling Expected: 06/10/2025 (Approximate), Expires: 06/10/2026 Hepatic Function Panel Lab Routine Essential hypertension Other hyperlipidemia Depressive disorder Hypothyroidism, unspecified type Chronic migraine Paresthesia of both lower extremities Breast pain, left Healthcare maintenance Dietary counseling Exercise counseling Expected: 06/10/2025 (Approximate), Expires: 06/10/2026 Hemoglobin A1c Lab Routine Essential hypertension Other hyperlipidemia Depressive disorder Hypothyroidism, unspecified type Chronic migraine Paresthesia of both lower extremities Breast pain, left Healthcare maintenance Dietary counseling Exercise counseling Expected: 06/10/2025 (Approximate), Expires: 06/10/2026 Basic Metabolic Panel Lab Routine Essential hypertension Other hyperlipidemia Depressive disorder Hypothyroidism, unspecified type Chronic migraine Paresthesia of both lower extremities Breast pain, left Healthcare maintenance Dietary counseling Exercise counseling Expected: 06/10/2025 (Approximate), Expires: 06/10/2026 CBC Lab Routine Essential hypertension Other hyperlipidemia Depressive disorder Hypothyroidism, unspecified type Chronic migraine Paresthesia of both lower extremities Breast pain, left Healthcare maintenance Dietary counseling Exercise counseling Expected: 06/10/2025, Expires: 06/10/2026 Albumin, Random Urine W/Creatinine Lab Routine Essential hypertension Other hyperlipidemia Depressive disorder Hypothyroidism, unspecified type Chronic migraine Paresthesia of both lower extremities Breast pain, left Healthcare maintenance Dietary counseling Exercise counseling Expected: 06/10/2025 (Approximate), Expires: 06/10/2026 Chlamydia/N. Gonorrhoeae RNA, TMA, Urogenitial Microbiology Routine Essential hypertension Other hyperlipidemia Depressive disorder Hypothyroidism, unspecified type Chronic migraine Paresthesia of both lower extremities Breast pain, left Healthcare maintenance Dietary counseling Exercise counseling Ordered: 06/10/2025 HIV-1/2 Antigen and Antibodies, Fourth Generation, with Reflexes Lab Routine Essential hypertension Other hyperlipidemia Depressive disorder Hypothyroidism, unspecified type Chronic migraine Paresthesia of both lower extremities Breast pain, left Healthcare maintenance Dietary counseling Exercise counseling Expected: 06/10/2025 (Approximate), Expires: 06/10/2026 Hepatitis C Antibody with Reflex to HCV, RNA, Quantitative, Real-Time PCR Lab Routine Essential hypertension Other hyperlipidemia Depressive disorder Hypothyroidism, unspecified type Chronic migraine Paresthesia of both lower extremities Breast pain, left Healthcare maintenance Dietary counseling Exercise counseling Expected: 06/10/2025, Expires: 06/10/2026 RPR (Monitor) with Reflex to Titer Lab Routine Essential hypertension Other hyperlipidemia Depressive disorder Hypothyroidism, unspecified type Chronic migraine Paresthesia of both lower extremities Breast pain, left Healthcare maintenance Dietary counseling Exercise counseling Expected: 06/10/2025, Expires: 06/10/2026 documented as of this encounter Visit Diagnoses Diagnosis Essential hypertension- Primary Unspecified essential hypertension Other hyperlipidemia Depressive disorder Depressive disorder, not elsewhere classified Hypothyroidism, unspecified type Chronic migraine Paresthesia of both lower extremities Breast pain, left Healthcare maintenance Dietary counseling Dietary surveillance and counseling Exercise counseling documented in this encounter Additional Health Concerns Assessment Noted Time PHQ-9 Depression Total Score: 0 02/26/20 25 11:39 AM EDT documented as of this encounter Care Teams Scheduling Administrator Relationship Specialty Start Date End Date Rosa Elliott DO [address] [place] [id number] PCP - General Family Medicine 02/21/14 documented as of this encounter
--- OUTSIDE RECORDS SUMMARY | 2025-06-10 10:50 | XMS_ITS | Encounter Summary ---
Author Organization [employer] Address [address] [facility] [address] [place] [address] Care Team Providers Care Environmental Sustainability Manager Name Role Phone Rosa Elliott DO Primary Care Provider + [phone] Reason for Visit * Reason Comments Med Refill Encounter Details Date Type Department Care Team ([facility] st Contact Info) Description 04/14/2025 Refill [facility] [address] [place], [place] [phone] Rosa Elliott DO [address] [place], [place] [phone] Other insomnia Social History Tobacco Use Types [...] as of this encounter Plan of Treatment Upcoming Encounters Date Type Department Care Team (Late st Contact Info) Description 09/11/2025 1:00 PM EST Office Visit [facility] OPTOMETRY [address] [place] [address] Elodia Flores, OD [address] [place] [address] documented as of this encounter Visit Diagnoses Diagnosis Other insomnia documented in this encounter Additional Health Concerns Assessment Noted Time PHQ-9 Depression Total Score: 0 02/26/20 25 11:39 AM EDT documented as of this encounter Care Teams Environmental Sustainability Manager Relationship Specialty Start Date End Date Rosa Elliott DO [address] [place] [address] PCP - General Family Medicine 02/21/14 documented as of this encounter
--- OUTSIDE RECORDS SUMMARY | 2025-06-10 10:50 | XMS_ITS | Clinical Summary ---
Author Organization [employer] Address [address] [place] [address] 7[address] [place] [address] Care Team Providers Care Supervisor Painting Shipyard Name Role Phone MarkosRosa kessler Primary Care Provider + [phone] Allergies Active Allergy Reactions Criticality Noted Date Comments Morphine 07/09/2013 Other Reaction(s): Rash/Dermatitis Medications * This document contains information received from the source organization and may not represent a complete record from that organization. topiramate (Topamax) 50 MG tabletIndications: Nonintractable chronic migraine Take 1 tablet (50 mg) by mouth at bedtime. 90 tablet 3 01/01/20 25 026 Active naproxen (Naprosyn) 500 MG tabletIndications: Right hip pain Take 1 tablet (500 mg) by mouth with breakfast and with evening meal. 30 tablet 1 01/01/20 25 Active lisinopril 10 MG tabletIndications: Secondary hypertension TAKE 1 TABLET BY MOUTH EVERY DAY 90 tablet 1 01/01/20 25 Active lidocaine (Lidoderm) 5 % patchIndications:R ight hip pain Apply 1 patch topically Once per day. Remove & discard patch within 12 hours or as directed by MD. 30 patch 1 01/01/20 25 Active levothyroxine (Synthroid, Levoxyl) 75 MCG tablet Take 1 tablet (75 mcg) by mouth before breakfast. 90 tablet 3 01/01/20 25 026 Active hydrOXYzine pamoate (Vistaril) 25 MG capsuleIndications :Hypothyroidism, unspecified type Take 1 capsule (25 mg) by mouth every 6 (six) hours if needed for anxiety. 30 capsule 2 01/01/20 25 Active Diclofenac Sodium 1 % gelIndications:Rig ht hip pain Apply 1 Application topically if needed in the morning, at noon, in the evening, and at bedtime (pain). 150 g 3 01/01/20 25 Active atorvastatin (Lipitor) 10 MG tabletIndications: Other hyperlipidemia Take 1 tablet (10 mg) by mouth Once per day. 90 tablet 3 01/01/20 25 026 Active FLUoxetine (PROzac) 10 MG tabletIndications: Depressive disorder TAKE 1 TABLET BY MOUTH EVERY DAY 90 tablet 04/04/20 25 Active SUMAtriptan (Imitrex) 25 MG tabletIndications: Nonintractable chronic migraine TAKE 1 TABLET BY MOUTH ONE TIME IF NEEDED FOR MIGRAINE 9 tablet 2 04/16/20 25 Active acetaminophen (Tylenol 8 Hour) 650 MG ER tablet TAKE 1 TABLET BY MOUTH EVERY 8 HOURS 60 tablet 3 05/01/20 25 Active fluticasone (Flonase) 50 MCG/ACT nasal sprayIndications:A llergy, sequela INSTILL 2 SPRAYS IN EACH NOSTRIL ONCE DAILY. SHAKE GENTLY,BEFORE FIRST USE,PRIME PUMP,AFTER USE CLEAN TIP AND REPLACE CAP 16 g 3 05/07/20 25 Active baclofen (Lioresal) 10 MG tabletIndications: Right hip pain TAKE ONE TABLET (10 MG) BY MOUTH IF NEEDED IN THE MORNING AND AT BEDTIME FOR MUSCLE SPASMS 60 tablet 3 05/07/20 25 Active traZODone (Desyrel) 150 MG tabletIndications: Other insomnia TAKE ONE TABLET BY MOUTH DAILY AT 9PM AT BEDTIME 30 tablet 3 05/07/20 25 Active loratadine (Claritin) 10 MG tablet TAKE ONE TABLET (10 MG) BY MOUTH DAILY AT 9AM 30 tablet 3 05/07/20 25 Active Active Problems Problem Noted Date Diagnosed Date [...] 11/07/2022 Chronic constipation 01/08/2018 BMI 40.0-44.9, adult (CMS/HCC) 09/28/2015 Restless leg syndrome 09/28/2015 Resolved Problems [...] Encounters Date Type Department Care Team Description 06/10/2025 9:00 AM EST Office Visit [facility] [address] [place] [phone] Rosa Elliott DO Essential hypertension (Primary Dx); Other hyperlipidemia; Depressive disorder; Hypothyroidism, unspecified type; Chronic migraine; Paresthesia of both lower extremities; Breast pain, left; Healthcare maintenance; Dietary counseling; Exercise counseling 06/10/2025 Travel 06/09/2025 Telephone [facility] [address] [place] [address] Rosa Elliott DO Chart Prep 06/05/2025 Telephone [facility] [address] [place] [address] Rosa Elliott, Recall Appointment 06/05/2025 Travel 05/06/2025 Refill [facility] [address] [place] [address] Rosa Elliott DO Allergy, sequela; Right hip pain; Other insomnia 05/01/2025 Refill [facility] [address] [place] [address] Rosa Elliott DO 04/16/2025 Refill [facility] [address] [place] [address] Rosa Elliott, Chronic migraine 04/14/2025 Refill [facility] [address] [place] [address] Rosa Elliott, Other insomnia 04/08/2025 Refill [facility] [address] [place] [address] Rosa Elliott DO Chronic migraine 04/04/2025 Refill [facility] [address] [place] [address] Rosa Elliott, Depressive disorder 04/02/2025 Refill [facility] [address] [place] [address] Rosa Elliott, Chronic migraine from Last 3 Months Immunizations Immunization Administration Dates Next Due DTaP 09/14/2010 Hep A, Adult 07/20/2011,08/31/2010 Hep B, adult 07/20/2011,10/26/2010,08/31/2010 Influenza High-dose Quadriva lent Preservative Free 06/26/2023,04/22/2022,04/30/2021 Influenza, Split (incl. val fied surface antigen) 05/20/2013,04/25/2012 Influenza, seasonal, injecta ble, preservative free 04/28/2025 Influenza, trivalent, adjuvanted 04/16/2024 Pfizer Covid-19 Vaccine 12+ 06/07/2024,11/20/202 3 Pneumococcal Conjugate PCV 13 04/30/2021 Pneumococcal [...] Mass Index 36.4 06/10/2025 9:06 AM EST Plan of Treatment Upcoming Encounters Date Type Department Care Team (Late st Contact Info) Description 09/11/2025 1:00 PM EST Office Visit [facility] [address] [place] [address] Mark, Elodia, OD [address] [place] [address] Health Maintenance Due Date Last Done Comments CT Colonography 1955 Colonoscopy 1955 Colorectal Cancer Screening 1955 FIT DNA/Cologuard 1955 FIT 1955 FOBT 1955 Sigmoidoscopy 1955 RSV Patients and Patients Aged 60 years or older (1 - Risk 60-74 years 1-dose series) 2015 COVID-19 Vaccine ( season) 2025 06/07/2024, 06/26/2023, 04/22/2022, Additional history exists SDOH Screening 05/30/2025 05/30/2024 Mammogram 11/08/2025 11/08/2024, 04/0 11/2024, 11/04/2023, Additional history exists Alcohol/Substance Use Screening 02/25/2026 02/25/2025 Depression Screening 02/25/2026 02/25/2025, 02/26/20 25 Tobacco Screening 06/10/2026 06/10/2025 Lipid Panel 06/05/2029 06/05/2024, 01/05, 02/24/2021, Additional history exists DTaP/Tdap/Td Vaccines (5 - Td or Tdap) 01/18/2033 01/18/2023, 08/19/2012, 09/14/2010, Additional history exists Hepatitis A Vaccines Completed 07/20/2011, 08/31/19 11 Hepatitis B Vaccines Completed 07/20/2011, 10/26/2010, 08/31/2010 Zoster Vaccines Completed 08/03/2021, 04/08, 02/22/2021, Additional history exists Pneumococcal Vaccine: 50+ Years Completed 06/26/2023, 04/30/2021 Influenza Vaccine Completed 04/28/2025, , 06/26/2023, Additional history exists HIB Vaccines Aged Out No longer eligi ble based on patient's age to complete this topic HPV Vaccines Aged Out No longer eligi ble based on patient's age to complete this topic IPV Vaccines Aged Out No longer eligi ble based on patient's age to complete this topic Meningococcal B Vaccine Aged Out No l onger eligible based on patient's age to complete [...] Procedure Name Priority Date/Time Associated Diagnosis Comments BI US BREAST LIMITED LEFT Routine 11/08/2024 10:00 AM EDT LIPID PANEL, STANDARD Routine 06/05/2024 8:52 AM EDT Essential hypertension from Last 3 Months or Most Recently Relevant to Health Maintenance Results * BI US Breast Limited Left (11/08/2024 10:00 AM EDT) Anatomical Region Laterality Modality Breast Left Ultrasound 11/08/2024 10:0 0 AM EDT Narrative 11/08/2024 12:34 PM EDT [facility] [place] [address] Ultrasound Report Signed Patient: Natalie Mcghee MR#: [id number] 21 : 1955 Acct:[id number] Age/Sex: 69 / F ADM Date: 11/08/24 Loc: HO.MAMMO Attending Dr: Rosa Elliott DO Ordering Physician: Rosa Elliott DO Date of Service: 11/08/24 Procedure(s): US breast LT limited mamm only Accession Number(s): [id number] cc: Rosa Elliott DO EXAMINATION: MM DIAGNOSTIC DIGITAL BREAST TOMOSYNTHESIS, BILATERAL Limited left breast ultrasound. CLINICAL INFORMATION: Left breast palpable lump. COMPARISON: Mammography: Comparison is made with relevant prior exams. TECHNIQUE: Digital breast mammography with tomosynthesis is performed in both the craniocaudal and mediolateral oblique views along with computer-aided detection (CAD). FINDINGS: The breasts are heterogeneously dense, which may obscure small masses (ACR BI-RADS breast composition Category c). BB marker in the upper outer breast without underlying abnormality. There are no significant masses, abnormal calcifications, or other abnormalities. Targeted color Doppler ultrasound demonstrates a simple to minimally complicated cyst at 1:00 7 cm from the nipple measuring approximately 4 x 3 x 3 mm which correlates with the patient's palpable lump and is benign. Results are provided to the patient at time of visit by the technologist. US/US breast LT limited mamm only IMPRESSION: Left: Benign simple to minimally complicated cyst in the area the patient's left palpable lump. Recommend clinical evaluation follow-up. Right: Negative. ASSESSMENT: BI-RADS BI-RADS 2 - Benign Findings RECOMMENDATION: 1 year F/U This patient's information was entered into a reminder system with a target due date for their next mammogram. Electronically signed by: Marquita Reyes DO 11/08/2024 12:31 PM EDT Dictated By: Marquita Reyes DO Signed By: <Electronically signed by Marquita Reyes DO in OV> 11/08/24 1231 DD/ 1000 TD/TT: 11/08/24 1035 Carpet Layer: Procedure Note Donotuseinterpreter, Image - [facility] [address] [place] [address] Ultrasound Report Signed Patient: Natalie Mcghee MMR#: [id number] 21 : 5Acct:[id number] Age/Sex: 69 / FADM Date: 11/08/24 Loc: HO.MAMMO Attending Dr: Rosa Elliott DO Ordering Physician: Rosa Elliott DO Date of Service: 11/08/24 Procedure(s): US breast LT limited mamm only Accession Number(s): [id number] cc: Rosa Elliott DO EXAMINATION: MM DIAGNOSTIC DIGITAL BREAST TOMOSYNTHESIS, BILATERAL Limited left breast ultrasound. CLINICAL INFORMATION: Left breast palpable lump. COMPARISON: Mammography: Comparison is made with relevant prior exams. TECHNIQUE: Digital breast mammography with tomosynthesis is performed in both the craniocaudal and mediolateral oblique views along with computer-aided detection (CAD). FINDINGS: The breasts are heterogeneously dense, which may obscure small masses (ACR BI-RADS breast composition Category c). BB marker in the upper outer breast without underlying abnormality. There are no significant masses, abnormal calcifications, or other abnormalities. Targeted color Doppler ultrasound demonstrates a simple to minimally complicated cyst at 1:00 7 cm from the nipple measuring approximately 4 x 3 x 3 mm which correlates with the patient's palpable lump and is benign. Results are provided to the patient at time of visit by the technologist. US/US breast LT limited mamm only IMPRESSION: Left: Benign simple to minimally complicated cyst in the area the patient's left palpable lump. Recommend clinical evaluation follow-up. Right: Negative. ASSESSMENT: BI-RADS BI-RADS 2 - Benign Findings RECOMMENDATION: 1 year F/U This patient's information was entered into a reminder system with a target due date for their next mammogram. Electronically signed by: Marquita Reyes DO 11/08/2024 12:31 PM EDT Dictated By: Marquita Reyes DO Signed By: <Electronically signed by Marquita Reyes DO in OV> 11/08/24 1231 DD/ 1000 TD/TT: 11/08/24 1035 Carpet Layer: us Rosa Elliott DO IMG US PROCEDURES Final Resu lt * (ABNORMAL) Lipid Panel, Standard (06/05/2024 8:52 AM EDT) Triglycerides 126 <150 mg/dL [facility] Comment:Desirable Triglyceri de: less than 150 mg/dLBorderline High Triglyceride 150-199 mg/dLHigh Triglyceride: 200-499 mg/dLVery High Triglyceride: greater than or equal to 5OO mg/dL Cholesterol 215(H) <200 mg/dL [facility] Comment:Desirable Cholestero l: less than 200 mg/dLBorderline High Cholesterol: 200-239 mg/dLHigh Cholesterol: greater than 239 mg/dL LDL Cholesterol Calculated 138(H) <100 mg/dL [facility] Comment:Desirable LDL: less than 100 mg/dLNear Optimal/Above Optimal LDL: 110- 129 mg/dLBorderline High LDL: 130-159 mg/dLHigh LDL: 160-189 mg/dLVery High LDL: greater than or equal to 190 mg/dL HDL Cholesterol 52 >40 mg/dL [facility] Comment:Desirable HDL: great er than 40 mg/dL Note: This HDL assay may give artificially low results in patients with liver disease. Blood Venous blood specimen / Unknown 06/05/2024 8:52 AM EDT 06/05/2024 11:23 AM EDT us Rosa Elliott DO LAB BLOOD ORDERABLES Final R esult [facility] [address] [place], [place] [phone] from Last 3 Months or Most Recently Relevant to Health Maintenance Insurance [employer] HMO Care Teams Supervisor Painting Shipyard Relationship Specialty Start Date End Date Rosa Elliott DO [address] [place] [phone] PCP - General Family Medicine 02/21/14
--- OUTSIDE RECORDS SUMMARY | 2025-06-10 10:50 | XMS_ITS | Encounter Summary ---
Author Organization [facility] [employer] Address [address] [facility] [address]t [place] [address] Care Team Providers Care Auto Accessories Installer Name Role Phone MarkosRosa kessler Primary Care Provider + [phone] Reason for Visit * Reason Comments Med Refill Encounter Details Date Type Department Care Team ([facility] st Contact Info) Description 09/10/2024 Refill [facility] [address] [place], [place] [phone] Rayna Ferrer MD [address] [place] [address] Secondary hypertension Social History Tobacco Use Types [...] Description 09/11/2025 1:00 PM EST Office Visit [facility] [address] [place] [address] Elodia Flores, OD [address] [place] [address] documented as of this encounter Visit Diagnoses Diagnosis Secondary hypertension Other secondary hypertension, unspecified documented in this encounter Additional Health Concerns Assessment Noted Time PHQ-9 Depression Total Score: 3 02/21/20 24 10:33 AM EDT documented as of this encounter Care Teams Auto Accessories Installer Relationship Specialty Start Date End Date Rosa Elliott DO [address] [place] [address] PCP - General Family Medicine 02/21/14 documented as of this encounter
--- OUTSIDE RECORDS SUMMARY | 2025-06-10 10:50 | XMS_ITS | Encounter Summary ---
Author Organization [employer] Address [address] [facility] [address] [place] [address] Care Team Providers Care Corporate Development Officer Name Role Phone MarkosRosa kessler Primary Care Provider + [phone] Encounter Details Date Type Department Care Team (Late st Contact Info) Description 07/26/2022 Abstract [facility] [address] [place] [address] Provider, MD Jonathan Social History Tobacco Use Types Packs/Day Years [...] Description 09/11/2025 1:00 PM EST Office Visit [facility] [address] [place] [address] Elodia Flores, OD [address] [place] [address] Pending Results Name Type Priority Associated Diagnoses [...] on filedocumented in this encounter Care Teams Corporate Development Officer Relationship Specialty Start Date End Date Rosa Elliott DO [address] [place] [phone] PCP - General Family Medicine 02/21/14 documented as of this encounter
--- OUTSIDE RECORDS SUMMARY | 2025-06-10 10:50 | XMS_ITS | Clinical Summary ---
Author Organization [facility] Address [address] [place] [phone] Phone Care Team Providers Care Natural Gas Trader Name Role Phone Physician, Pcp Unknown Primary Care Provider Mariela vailable Allergies Active Allergy Reactions Criticality Noted Date Comments Morphine Rash 11/02/2024 Family History Medical History Relation Name Comments [...] 87 11/02/2024 9:35 PM EDT Temperature 37.4 C (99.3 F) 11/02/2024 9:35 PM EDT Respiratory Rate 16 11/02/2024 9:35 PM EDT [...] Cancer Screening 1955 Colorectal Cancer Screening: Colonoscopy 1955 Depression Screening 08/07/2024 Falls Risk Assessment 11/02/2024 Hepatitis C Screening 11/02/2024 Medicare Annual Wellness Visit 11/02/2024 Social Influencers of Health Screening 11/02/2024 COVID-19 Vaccine ( season) 2025 06/07/2024, 06/26/2023, 04/22/2022, Additional history exists Influenza Vaccine (#1) 2025 , 06/26/2023, 04/22/2022, Additional history exists Hypertension/CHF/CAD Annual BMP Blood Test 11/02/2025 11/02/2024 [...] Pneumococcal Vaccine: 50+ Years Completed 06/26/2023, 04/30/2021 HIB Vaccines Aged Out No longer eligi [...] Procedure Name Priority Date/Time Associated Diagnosis Comments COMPREHENSIVE METABOLIC PANEL STAT 11/02/2024 3:05 PM EDT from Last 3 Months or Most Recently Relevant to Health Maintenance Results * Comprehensive metabolic panel (11/02/2024 3:05 PM EDT) Sodium 136 133 - 145 mmol/L LAB CHEMISTRY METHOD 11/02/2024 3:52 PM [facility] Potassium 4.3 3.5 - 5.5 mmol/L LAB CHEMISTRY METHOD 11/02/2024 3:52 PM [facility] Chloride 104 96 - 110 mmol/L LAB CHEMISTRY METHOD 11/02/2024 3:52 PM [facility] CO2 26 21 - 32 mmol/L LAB CHEMISTRY METHOD 11/02/2024 3:52 PM [facility] Anion Gap 6 3 - 11 LAB CHEMISTRY METHOD 11/02/2024 3:52 PM [facility] Glucose 97 70 - 100 mg/dL LAB CHEMISTRY METHOD 11/02/2024 3:52 PM [facility] BUN 17 5 - 25 mg/dL LAB CHEMISTRY METHOD 11/02/2024 3:52 PM [facility] Creatinine 0.85 0.50 - 1.10 mg/dL LAB CHEMISTRY METHOD 11/02/2024 3:52 PM [facility] eGFR 74 >=60 mL/min/1. 73m2 LAB CHEMISTRY METHOD 11/02/2024 3:52 PM [facility] Comment:Calculation based on the Chronic Kidney Disease Epidemiology Collaboration (CKD-EPI) equation refit without adjustment for race. BUN/Creatinine Ratio 20.0 LAB CHEMISTRY METHOD 11/02/2024 3:52 PM EDT [facility] Calcium 9.0 8.5 - 10.5 mg/dL LAB CHEMISTRY METHOD 11/02/2024 3:52 PM EDT [facility] AST (SGOT) 22 10 - 42 unit/L LAB CHEMISTRY METHOD 11/02/2024 3:52 PM EDT [facility] ALT (SGPT) 24 10 - 60 unit/L LAB CHEMISTRY METHOD 11/02/2024 3:52 PM EDT [facility] Alkaline Phosphatase 69 42 - 121 unit/L LAB CHEMISTRY METHOD 11/02/2024 3:52 PM EDT [facility] Total Protein 7.5 6.0 - 8.0 g/dL LAB CHEMISTRY METHOD 11/02/2024 3:52 PM EDT [facility] Albumin 4.0 3.2 - 5.0 g/dL LAB CHEMISTRY METHOD 11/02/2024 3:52 PM EDT [facility] Total Bilirubin 0.7 0.0 - 1.4 mg/dL LAB CHEMISTRY METHOD 11/02/2024 3:52 PM EDT [facility] Blood Venous blood specimen / Unknown Venipuncture / Unknown 11/02/2024 3:05 PM EDT 11/02/2024 3:16 PM EDT us Claudy Escobar MD LAB BLOOD ORDERABLES Final Resu lt [facility] [address] [place] [address], from Last 3 Months or Most Recently Relevant to Health Maintenance Insurance [facility] [employer] Care Teams Natural Gas Trader Relationship Specialty Start Date End Date Physician, Pcp Unknown PCP - General 11/02/24
--- OUTSIDE RECORDS SUMMARY | 2025-06-10 10:50 | XMS_ITS | Encounter Summary ---
Author Organization [employer] Address [address] [facility] 7 [place] [address] Care Team Providers Care Cost Consultant Name Role Phone Rosa Elliott DO Primary Care Provider + [phone] Reason for Visit * Reason Onset Date Comments Recall Appointment 06/05/2025 Encounter Details Date Type Department Care Team ([facility] st Contact Info) Description 06/05/2025 Telephone [facility] [address] [place], [place] [phone] Rosa Elliott DO [address] [place] [address] Recall Appointment Social History Tobacco Use Types Packs/Day Years [...] encounter Miscellaneous Notes * Telephone Encounter - Adelaide Camara MA - 06/05/2025 3:00 PM EDT Telephone call to patient to schedule the following recall: Visit type: Office visit Appointment notes: HTN Patient agree to appointment on 06/10/2025 at 09:00 AM with [place]. documented in this encounter Plan of Treatment Upcoming Encounters Date Type Department Care Team (Late st Contact Info) Description 09/11/2025 1:00 PM EST Office Visit [facility] [address] [place] [address] Elodia Flores, OD [address] [place] [address] documented as of this encounter Visit Diagnoses Not on filedocumented in this encounter Additional Health Concerns Assessment Noted Time PHQ-9 Depression Total Score: 0 02/26/20 25 11:39 AM EDT documented as of this encounter Care Teams Cost Consultant Relationship Specialty Start Date End Date Rosa Elliott DO [address] [place] [address] PCP - General Family Medicine 02/21/14 documented as of this encounter
--- OUTSIDE RECORDS SUMMARY | 2025-06-10 10:50 | XMS_ITS | Encounter Summary ---
Author Organization [employer] Address [address] [place] [phone] Care Team Providers Care Ramp Lead Name Role Phone Rosa Elliott DO Primary Care Provider + [phone] Reason for Visit * Reason Comments Med Refill Encounter Details Date Type Department Care Team (Late Contact Info) Description 03/17/2023 Refill [facility] [address] [place], [place] [phone] Rosa Elliott DO [address] [place] [address] Other insomnia Social History Tobacco Use Types [...] Encounters Date Type Department Care Team (Late Contact Info) Description 09/11/2025 1:00 PM EST Office Visit [facility] [address] [place] [address] Elodia Flores, OD [address] [place] [address] documented as of this encounter Visit Diagnoses Diagnosis Other insomnia documented in this encounter Additional Health Concerns Assessment Noted Time PHQ-9 Depression Total Score: 5 01/19/20 23 10:30 AM EDT documented as of this encounter Care Teams Ramp Lead Relationship Specialty Start Date End Date Rosa Elliott DO [address] [place] [address] PCP - General Family Medicine 02/21/14 documented as of this encounter
--- OUTSIDE RECORDS SUMMARY | 2025-06-10 10:50 | XMS_ITS | Encounter Summary ---
Author Organization [employer] Address [address] [facility] [address] [place] [address] Care Team Providers Care Tassel Clipper Name Role Phone Rosa Elliott DO Primary Care Provider + [phone] Reason for Visit * Reason Onset Date Comments Reschedule 06/27/2024 Encounter Details Date Type Department Care Team ([facility] st Contact Info) Description 06/27/2024 Telephone [facility] [address] [place], [place] [phone] Rosa Elliott DO [address] [place], [place] [phone] Reschedule Social History Tobacco Use Types Packs/Day [...] for 06/28. Contact pt to r/s at [phone] documented in this encounter Plan of Treatment Upcoming Encounters Date Type Department Care Team (Late st Contact Info) Description 09/11/2025 1:00 PM EST Office Visit [facility] OPT[facility] [address] [place] [address] Elodia Flores, OD [address] [place] [address] documented as of this encounter Visit Diagnoses Not on filedocumented in this encounter Additional Health Concerns Assessment Noted Time PHQ-9 Depression Total Score: 3 02/21/20 24 10:33 AM EDT documented as of this encounter Care Teams Tassel Clipper Relationship Specialty Start Date End Date Rosa Elliott DO [address] [place] [address] PCP - General Family Medicine 02/21/14 documented as of this encounter
--- OUTSIDE RECORDS SUMMARY | 2025-06-10 10:50 | XMS_ITS | Encounter Summary ---
Author Organization [email or web address] Address [address] [facility] [address] [place] [address] Care Team Providers Care Assembly Member Name Role Phone Rosa Elliott DO Primary Care Provider + [phone] Reason for Visit * Reason Onset Date Comments Chart Prep 06/09/2025 Encounter Details Date Type Department Care Team ([facility] st Contact Info) Description 06/09/2025 Telephone [facility] [address] [place], [place] [phone] Rosa Elliott DO [address] [place] [address] Chart Prep Social History Tobacco Use Types Packs/Day Years [...] Telephone Encounter - Adelaide Camara [place] - 06/09/2025 1:57 PM EST Chart Prep Labs: done Images: done Referrals: complete Vaccines due: Covid and RSV Screenings: colonoscopy Overdue care gaps: SDOH, PHQ-9, and SHIRA-7 documented in this encounter Plan of Treatment Upcoming Encounters Date Type Department Care Team (Late st Contact Info) Description 09/11/2025 1:00 PM EST Office Visit [facility] OPTOM[facility] [address] [place] [address] Elodia Flores, OD [address] [place] [address] documented as of this encounter Visit Diagnoses Not on filedocumented in this encounter Additional Health Concerns Assessment Noted Time PHQ-9 Depression Total Score: 0 02/26/20 25 11:39 AM EDT documented as of this encounter Care Teams Assembly Member Relationship Specialty Start Date End Date Rosa Elliott DO [address] [place] [address] PCP - General Family Medicine 02/21/14 documented as of this encounter
--- OUTSIDE RECORDS SUMMARY | 2025-06-10 10:50 | XMS_ITS | Encounter Summary ---
Author Organization [employer] Address [address] [facility] [address] [place] [address] Care Team Providers Care Heat Plant Specialist Name Role Phone Rosa Elliott DO Primary Care Provider + [phone] Reason for Visit * Reason Comments Med Refill Encounter Details Date Type Department Care Team ([facility] st Contact Info) Description 06/03/2023 Refill [facility] [address] [place], [place] [phone] Rosa Elliott DO [address] [place], [place] [phone] Secondary hypertension Social History Tobacco Use Types [...] Description 09/11/2025 1:00 PM EST Office Visit [facility] OPTOMETRY [address] [place], [place] [phone] Elodia Flores, OD [address] [place] [address] documented as of this encounter Visit Diagnoses Diagnosis Secondary hypertension Other secondary hypertension, unspecified documented in this encounter Additional Health Concerns Assessment Noted Time PHQ-9 Depression Total Score: 5 01/19/20 23 10:30 AM EDT documented as of this encounter Care Teams Heat Plant Specialist Relationship Specialty Start Date End Date Rosa Elliott DO [address] [place] [address] PCP - General Family Medicine 02/21/14 documented as of this encounter
--- OUTSIDE RECORDS SUMMARY | 2025-06-10 10:50 | XMS_ITS | Encounter Summary ---
Author Organization [employer] Address [address] [facility] [address] [place] [address] Care Team Providers Care Musical Instrument Mechanic Name Role Phone ChristaRosa branch Primary Care Provider + [phone] Encounter Details Date Type Department Care Team (Latest Contact Info) Description 06/10/2025 Travel Social History Tobacco Use Types Packs/Day [...] Description 09/11/2025 1:00 PM EST Office Visit [facility] OPTOMETRY [address] [place], [place] [phone] Elodia Flores, RACHEL [address] [place] [address] documented as of this encounter Visit Diagnoses Not on filedocumented in this encounter Additional Health Concerns Assessment Noted Time PHQ-9 Depression Total Score: 0 02/26/20 25 11:39 AM EDT documented as of this encounter Care Teams Musical Instrument Mechanic Relationship Specialty Start Date End Date Rosa Elliott DO [address] [place] [address] PCP - General Family Medicine 02/21/14 documented as of this encounter
--- OUTSIDE RECORDS SUMMARY | 2025-06-10 10:50 | XMS_ITS | Encounter Summary ---
Author Organization [employer] Address [address] [place] [id number] Care Team Providers Care Staff Veterinarian Name Role Phone Rosa Elliott DO Primary Care Provider + [phone] Encounter Details Date Type Department Care Team (Late st Contact Info) Description 07/26/2022 Abstract [facility] [address] [place] [address] Rosa Elliott DO [address] [place] [address] Social History Tobacco Use Types Packs/Day Years [...] Description 09/11/2025 1:00 PM EST Office Visit [facility] OPTOMETRY [address] [place] [address] Mark, Elodia, OD [address] [place] [address] documented as of this encounter Visit Diagnoses Not on filedocumented in this encounter Care Teams Staff Veterinarian Relationship Specialty Start Date End Date Rosa Elliott DO [address] [place] [address] PCP - General Family Medicine 02/21/14 documented as of this encounter
--- OUTSIDE RECORDS SUMMARY | 2025-06-10 10:50 | XMS_ITS | Encounter Summary ---
Author Organization [employer] Address [address] [facility] [address] [place] [address] Care Team Providers Care Police Sergeant Precinct Name Role Phone ChristaRosa branch Primary Care Provider + [phone] Encounter Details Date Type Department Care Team (Latest Contact Info) Description 06/05/2025 Travel Social History Tobacco Use Types Packs/Day [...] 1:00 PM EST Office Visit [facility] OPTOMETRY [address] [place], [place] [phone] Elodia Flores, RACHEL [address] [place] [address] documented as of this encounter Visit Diagnoses Not on filedocumented in this encounter Additional Health Concerns Assessment Noted Time PHQ-9 Depression Total Score: 0 02/26/20 25 11:39 AM EDT documented as of this encounter Care Teams Police Sergeant Precinct Relationship Specialty Start Date End Date Rosa Elliott DO [address] [place] [address] PCP - General Family Medicine 02/21/14 documented as of this encounter
[2025-06-10 12:02] LABS: MANUAL DIFF FLAG NO
[2025-06-10 12:14] LABS: Microalbum/Creatinine Ratio Ur 11.6 ug/mg cr (<30)
[2025-06-10 12:23] LABS: Hematocrit 46.3 % (37.0-47.0); Hemoglobin 14.4 g/dl (12.0-16.0); Imm Gran Abs Auto 0.01 X10*3/uL (0.00-0.03); Imm Gran Pct Auto 0.2 % (0.0-0.4); Lymphocytes Absolute Auto 1.8 X10*3/uL (1.2-4.9); Mean Corpuscular HGB Conc 31.1 g/dl (31.0-35.0); Mean Corpuscular Hemoglobin 28.2 pg (27.0-33.0); Mean Corpuscular Volume 90.8 fL (80.0-98.0); NRBC Abs Auto 0.000 X10*3/uL (0.0-0.012); NRBC Pct Auto 0.0 /100WBC (0.0-0.2); Platelet Count 173 X10*3/uL (160-400); Red Blood Count 5.10 X10*6/uL (4.20-5.50); White Blood Count 4.7 X10*3/uL (4.8-10.8)
[2025-06-10 12:47] LABS: Alanine Aminotransferase 13 U/L (0-31); Albumin Level 4.5 g/dL (3.5-5.0); Alkaline Phosphatase 62 U/L (39-117); Anion Gap 11 (12-20); Aspartate Amino Transferase 21 U/L (5-31); Blood Urea Nitrogen 24 mg/dL (9-16); Calcium 9.1 mg/dL (8.4-10.2); Carbon Dioxide 24 mmol/L (22-29); Chloride 111 mmol/L (96-108); Cholesterol 237 mg/dL (<200); Estimated Glomerular Filt Rate > 60; HDL Cholesterol 53 mg/dL (>40); Potassium 4.1 mmol/L (3.3-5.1); Sodium 142 mmol/L (135-145); Total Protein 7.2 g/dL (6.5-8.0); Triglycerides 141 mg/dL (<150)
[2025-06-10 12:55] LABS: HIV Num 1 0.07 S/CO (0.00-0.99); ~HepC Num1 0.72 S/CO (0.00-0.79); ~Hepatitis C Antibody Nonreactive (Nonreactive)
[2025-06-10 13:04] LABS: Free T4 (Free Thyroxine) 1.06 ng/dL (0.71-1.85); Thyroid Stimulating Hormone 4.11 uIU/mL (0.32-4.0)
[2025-06-10 13:36] LABS: CT PCR Urine NOT DETECTED (Not Detect.); NG PCR Urine NOT DETECTED (Not Detect.)
[2025-06-14 13:22] LABS: VITAMIN D (1,25 OH) D3 38 pg/mL; Vit D (1,25-Dihydroxy) Total 38 pg/mL (18-72); Vitamin D (1,25 OH) D2 <8 pg/mL
== END 2025-06-10 09:38 | disposition home or self-care (01) ==
LOC: HO.HHCL 09:37
PROVIDERS: PCP Family Medicine; Visit Provider Family Medicine
DX: Z00.00 Encounter for general adult medical examination without abnormal findings (principal); Z11.4 Encounter for screening for human immunodeficiency virus [HIV]; Z13.1 Encounter for screening for diabetes mellitus; Z11.59 Encounter for screening for other viral diseases; I10 Essential (primary) hypertension; Z20.2 Contact with and (suspected) exposure to infections with a predominantly sexual mode of transmission; G43.909 Migraine, unspecified, not intractable, without status migrainosus; E78.49 Other hyperlipidemia; F32.A Depression, unspecified; E03.9 Hypothyroidism, unspecified; R20.2 Paresthesia of skin; N64.4 Mastodynia; Z71.3 Dietary counseling and surveillance; Z71.82 Exercise counseling
CPT/HCPCS: 80048; 80061; 80076; 82043; 82570; 82652; 83036; 84439; 84443; 85025; 86803; 87389; 87491; 87591